=== PATIENT | female | born 1985 | race American Indian/Alaskan Native ===

== ENCOUNTER 2017-11-06 11:17 | Outpatient (CLI) | payer MEDICAID ==
[2017-11-06 11:44] VITALS: BP 125/62
[2017-11-06] MEDS ORDERED: LACTATED RINGERS 500 ML IV ONE (12:21)
[2017-11-06] MEDS ORDERED: FIORICET PO PRN (12:22)
[2017-11-06] MEDS ORDERED: XYLOCAINE 1% MPF 5 mL INFILTRATI ONE (13:30)
[2017-11-06] MEDS ORDERED: ROCEPHIN IM ONE (13:30)
--- NOTE | 2017-11-06 15:03 | Ultrasound Report ---
ULTRASOUND RENAL BILATERAL HISTORY: Urinary tract infection. TECHNIQUE: transabdominal ultrasound with color Doppler interrogation. FINDINGS: Scans of the kidneys show normal renal contours. There is normal central calyceal clustering and good preservation of the cortical thickness. There is no evidence of mass or hydronephrosis. The views of the bladder and the region of the ureters appear normal. IMPRESSION: Unremarkable renal ultrasound.
[2017-11-06] MEDS ORDERED: TYLENOL #3 PO ONE (16:15)
[2017-11-06] MEDS ORDERED: LACTATED RINGERS 1,000 ML IV SCH (18:00)
--- NOTE | 2017-11-06 18:51 | Ultrasound Report ---
FINAL REPORT EXAM: US OB > = 14 WEEKS FETUS HISTORY: MD REQUEST US OF FETUS TECHNIQUE: Ultrasound obstetrical transabdominal PRIORS: None. FINDINGS: Single live intrauterine gestation present cardiac activity is present with heart rate 137 beats per minute Cervical length 4.3 centimeters Placenta is anterior and does not appear low lying following structures are seen and appear grossly unremarkable, choroid plexus, lateral ventricles, stomach, kidneys, urinary bladder, three-vessel cord and cord insert Spine and four-chamber view of the heart not well seen due to positioning biometric measurements were obtained Biparietal diameter 23 weeks 1 day Head circumference 23 weeks 5 days Abdominal circumference 23 weeks 5 days Femur length 24 weeks 6 days Based on today's exam estimated weight 665 grams estimated gestational age today is 23 weeks 6 days with estimated date of delivery based on today's exam February 27, 2018 Amniotic fluid index is within normal limits 19.1 centimeters IMPRESSION: Single live intrauterine gestation estimated at 23 weeks 6 days
== END 2017-11-06 18:30 | disposition home or self-care (01) ==
LOC: TRG 11:17
PROVIDERS: ATTEND Obstetrics & Gynecology
DX: Z34.92 Encounter for supervision of normal pregnancy, unspecified, second trimester (principal); Z3A.23 23 weeks gestation of pregnancy
CPT/HCPCS: 59025; 76770; 76805; 96360; J0696; J7120

== ENCOUNTER 2018-02-18 16:07 | Outpatient (CLI) | payer MEDICAID ==
[2018-02-20 06:32] VITALS: BP 119/67
== END 2018-02-18 17:40 | disposition home or self-care (01) ==
LOC: TRG 16:07
PROVIDERS: ATTEND Obstetrics & Gynecology
DX: O47.03 False labor before 37 completed weeks of gestation, third trimester (principal); Z3A.38 38 weeks gestation of pregnancy
CPT/HCPCS: 59025

== ENCOUNTER 2018-02-19 09:17 | Inpatient (IN) | payer MEDICAID ==
[2018-02-19] MEDS ORDERED: PEPCID IV ONE (09:23)
[2018-02-19] MEDS ORDERED: REGLAN IV ONE (09:23)
[2018-02-19] MEDS ORDERED: BICITRA PO ONE (09:23)
[2018-02-19] MEDS ORDERED: PITOCin/NS 20 UNIT/1000ML DRIP 20 UNITS/1,000 ML BAG IV SCH ×2 (10:00→15:00)
[2018-02-19] MEDS ORDERED: ANCEF/STERILE WATER 2 GM/20 ML 2 GM/20 ML SYRINGE IV NR ×2 (10:00→14:32)
[2018-02-19] MEDS: LACTATED RINGERS 1,000 ML IV SCH ×2 (10:43→16:39)
[2018-02-19] MEDS ORDERED: NACL 0.9% 1000 ML 1,000 ML IV ONE (10:44)
--- NOTE | 2018-02-19 10:44 | Anesthesia Consultation ---
Anesthesia Consult and Med Hx Date of service: 02/19/18 - Airway Anesthetic Teeth Evaluation: Good ROM Head & Neck: Adequate Mental/Hyoid Distance: Adequate Mallampati Class: Class III Intubation Access Assessment: Possibly Difficult - Pre-Operative Health Status ASA Pre-Surgery Classification: ASA3 Proposed Anesthetic Plan: Epidural, Spinal - Pulmonary Hx Smoking: No Hx Asthma: No - Cardiovascular System Hx Hypertension: Yes (controlled ) Hx Heart Murmur: Yes (PDA repair as a child) - Central Nervous System Hx Seizures: No Hx Psychiatric Problems: No - Gastrointestinal Hx Gastroesophageal Reflux Disease: No - Endocrine Hx Renal Disease: No Hx Hypothyroidism: No Hx Hyperthyroidism: No - Hematic Hx Anemia: Yes Hx Sickle Cell Disease: Yes (TRAIT) - Other Systems Hx Alcohol Use: No Hx Substance Use: No Hx Cancer: No Hx Obesity: Yes (BMI 51.4)
--- NOTE | 2018-02-19 10:44 | Anesthesia Day of Surgery ---
Anesthesia Day of Surgery - Day of Surgery Patient Examined: Yes Patient H&P Reviewed: Yes Patient is NPO: Yes
[2018-02-19 10:48] LABS: Basophils % (Auto) 0.4 % (0.0-1.8); Eosinophils # (Auto) 0.1 K/mm3 (0.0-0.4); Eosinophils % (Auto) 0.8 % (0.0-4.3); Hematocrit 34.5 % (30.3-42.9); Hemoglobin 11.3 gm/dl (10.1-14.3); Lymphocytes # (Auto) 3.2 K/mm3 (1.2-5.4); Mean Corpuscular HGB Conc 33 % (30-34); Mean Corpuscular Hemoglobin 27 pg (28-32); Mean Corpuscular Volume 84 fl (79-97); Monocytes # (Auto) 0.8 K/mm3 (0.0-0.8); Monocytes % (Auto) 7.9 % (0.0-7.3); Platelet Count 261 K/mm3 (140-440); Red Cell Distribution Width 15.5 % (13.2-15.2)
[2018-02-19] MEDS ORDERED: NARCAN 0.4 MG/1 ML IV PRN ×2 (11:00→14:25)
[2018-02-19] MEDS ORDERED: TORADOL IV PRN (11:00)
[2018-02-19] MEDS ORDERED: SODIUM CHLORIDE FLUSH SYRINGE 10 ML IV PRN (11:00)
[2018-02-19] MEDS ORDERED: PHENERGAN PO PRN (11:00)
[2018-02-19] MEDS ORDERED: PHENERGAN PR PRN (11:00)
[2018-02-19 11:03] LABS: Alanine Aminotransferase 15 units/L (7-56); Uric Acid 6.5 mg/dL (3.5-7.6)
--- NOTE | 2018-02-19 11:29 | History and Physical Report ---
History of Present Illness Date of examination: 02/19/18 Date of admission: 02/19/18 09:17 Chief complaint: scheudled repeat csearean History of present illness: This fer 32 yo at 38+1 weeks here for scheduled repeat csearean. She is a patient of [facility] and has been seen since 11 week. 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 she alos has sickle cell trait and vit D and B12 deficiency. She had a low lying placenta that resolved and hx of UTI treated. She has been managed in this by MFM. Past History Past Surgical History: cholecystectomy, section, other (lap band, pda repair, ) [employer] History: herpes Family/Genetic History: diabetes, heart disease, hypertension, cancer, other ( seizure, and hypercholesterolemia ) Social history: . denies: smoking, alcohol abuse, prescription drug abuse - Obstetrical History Expected Date of Delivery: 02/12/18 Actual Gestation: 41 Week(s) 0 Day(s) : 5 Para: 3 Hx # Term Pregnancies: 3 Number of Pregnancies: 0 Spontaneous Abortions: 1 Induced : 0 Number of Living Children: 3 Medications and Allergies Allergies Allergy/AdvReac Type Severity Reaction Status Date / Time aspirin Allergy Intermediate Hives Verified 02/19/18 10:00 nitrofurantoin Allergy Mild Nausea Verified 02/19/18 10:43 [From Macrobid] ibuprofen [From Advil] Allergy Hives Verified 07/21/14 23:56 Home Medications Medication Instructions Recorded Confirmed Last Taken Type metFORMIN [Glucophage] 500 mg PO DAILY 07/21/14 07/21/14 07/20/14 History Hyoscyamine Subl [Levsin Sl] 0.125 mg SL Q4HR PRN #10 tablet 07/22/14 Unknown Rx Ondansetron [Zofran] 4 mg PO Q6HR PRN #14 tablet 07/22/14 Unknown Rx Acetaminophen/Codeine [Tylenol 1 tab PO Q6H PRN #10 tab 11/06/17 Unknown Rx /Codeine # 3 tab] Cephalexin [Keflex] 500 mg PO Q12HR #14 cap 11/06/17 Unknown Rx Fluconazole [Diflucan] 150 mg PO ONCE #1 tablet 11/06/17 Unknown Rx Active Meds: Active Medications Diphenhydramine HCl (Benadryl) 12.5 mg IV Q2H PRN PRN Reason: Itching Hydromorphone HCl (Dilaudid) 0.5 mg IV Q4H PRN PRN Reason: breakthrough pain > 7/10 Cefazolin Sodium (Ancef/Sterile Water 2 Gm/20 Ml) 2 gm in 20 mls @ 80 mls/hr IV PREOP NR; Protocol Stop: 02/19/18 23:59 Lactated Ringer's (Lactated Ringers) 1,000 mls @ 2,250 mls/hr IV PREOP RENETTA Stop: 02/20/18 10:27 Last Admin: 02/19/18 10:43 Dose: 2,250 mls/hr Oxytocin/Sodium Chloride (Pitocin/Ns 20 Unit/1000ml Drip) 20 units in 1,000 mls @ 0 mls/hr IV TITR RENETTA Sodium Chloride (Nacl 0.9% 1000 Ml) 1,000 mls @ 999 mls/hr IV BOLUS ONE Stop: 02/19/18 11:44 Ketorolac Tromethamine (Toradol) 30 mg IV Q6H PRN PRN Reason: Pain, Moderate (4-6) Stop: 02/24/18 10:59 Naloxone HCl (Narcan 0.4 Mg/1 Ml) 0.2 mg IV Q2MIN PRN PRN Reason: Res Rate </= 8 or 02 SAT < 92% Ondansetron HCl (Zofran) 4 mg IV Q8H PRN PRN Reason: Nausea And Vomiting Promethazine HCl (Phenergan) 25 mg PO Q6H PRN PRN Reason: Nausea And Vomiting Promethazine HCl (Phenergan) 25 mg LA Q6H PRN PRN Reason: Nausea And Vomiting Sodium Chloride (Sodium Chloride Flush Syringe 10 Ml) 10 ml IV PRN PRN PRN Reason: flush Review of Systems All systems: negative - Vital Signs Vital signs: Vital Signs Pulse Pulse Ox 89 97 02/18/18 17:33 02/18/18 17:33 Temp Pulse Resp BP Pulse Ox 97.3 F L 74 20 127/74 99 02/19/18 10:00 02/19/18 10:00 02/19/18 10:00 02/19/18 10:00 02/19/18 10:00 - Physical Exam Breasts: Positive: normal Cardiovascular: Regular rate, Normal S1 Lungs: Positive: Clear to auscultation, Normal air movement Abdomen: Positive: normal appearance, soft, normal bowel sounds. Negative: distention, tenderness, guarding Genitourinary (Female): Positive: normal external genitalia, normal perenium Vulva: both: normal Vagina: Positive: normal moisture Cervix: Negative: lesion Uterus: Positive: normal size Adnexa: both: normal Anus/Rectum: Positive: normal perianal skin Extremities: Positive: normal Deep Tendon Reflex Grade: Normal +2 - Obstetrical FHR: category 1 Cervical Dilatation: 0 Uterine Contraction Pattern: Absent Uterine Tone Measurement Phase: Resting Results Result Diagrams: 02/19/18 10:15 02/19/18 10:15 Abnormal lab results 02/19/18 02/19/18 Range/Units 10:15 10:15 MCH 27 L (28-32) pg RDW 15.5 H (13.2-15.2) % Ralls % (Auto) 7.9 H (0.0-7.3) % Creatinine 0.5 L (0.7-1.2) mg/dL Lactate Dehydrogenase 185 H (91-180) units/L All other labs normal. Assessment and Plan A/P IUP 38+1 weeks morbid obesity, HTN, DM consents signed reviewed risk of surgery which include bleeding infection damage to pelvic and non pelvic organs, risk of bleood transfusion, , risk of hysterectomy , risk of . patient understands risk and will proceed. all questions answered
[2018-02-19] MEDS ORDERED: NACL 0.9% 500 ML 500 ML IV ONE (11:52)
[2018-02-19] MEDS ORDERED: WATER FOR IRRIG STERILE IR ONE (12:20)
[2018-02-19] MEDS ORDERED: NACL 0.9% IR ONE ×5 (12:20→13:30)
[2018-02-19] MEDS ORDERED: ANCEF/STERILE WATER 2 GM/20 ML IV ONE (12:20)
[2018-02-19] MEDS ORDERED: NACL 0.9% 1000 ML 2,000 ML ONE (12:31)
[2018-02-19 12:40] LABS: Bilirubin,Urine NEG (Negative); Blood,Urine NEG (Negative); Color,Urine Yellow (Yellow); Protein,Urine <15 mg/dL mg/dL (Negative); Urobilinogen,Urine < 2.0 mg/dL (<2.0); WBC,Urine < 1.0 /HPF (0.0-6.0)
[2018-02-19] MEDS ORDERED: NEO SYNEPHRINE/NS Syringe(OR USE) IV ONE ×2 (12:41→13:57)
[2018-02-19] MEDS ORDERED: CYTOTEC ONE (13:03)
[2018-02-19] MEDS ORDERED: ePHEDrine SULFATE ONE (13:21)
[2018-02-19] MEDS ORDERED: NACL 0.9% 500 ML 500 ML IV NR (13:22)
[2018-02-19] MEDS ORDERED: ASTRAMORPH PF 10MG/10ML ONE (13:53)
[2018-02-19] MEDS ORDERED: NACL 0.9% 1000 ML 1,000 ML ONE (13:57)
[2018-02-19] MEDS ORDERED: TYLENOL PO PRN (14:25)
[2018-02-19] MEDS ORDERED: LANSINOH TP PRN (14:25)
[2018-02-19] MEDS ORDERED: SENOKOT PO PRN (14:25)
[2018-02-19] MEDS ORDERED: NORCO 5/325 PO PRN (14:25)
[2018-02-19] MEDS ORDERED: MORPHINE IV PRN (14:25)
[2018-02-19] MEDS ORDERED: TUCKS PAD TP PRN (14:25)
[2018-02-19] MEDS ORDERED: MILK OF MAGNESIA PO PRN (14:25)
[2018-02-19] MEDS ORDERED: CYTOTEC PR ONE (14:30)
--- NOTE | 2018-02-19 14:37 | Procedure Note ---
OB Delivery Note - Delivery Date of Delivery: 02/19/18 Surgeon: KERWIN SAAVEDRA Estimated blood loss: other (1999) - Section Preop diagnosis: repeat Postop diagnosis: same section procedure: repeat low transverse, other (salpingectomy via ligasure ) Disposition: PACU Complications: transfusion, intra-op hemorrhage Narrative: see op note - Infant A at 1 minute: 8 at 5 minutes: 9 Infant Gender: Male
--- NOTE | 2018-02-19 14:53 | Operative Report ---
Operative Report Operative Report: DATE OF OPERATION: 02/19/2018 PREOPERATIVE DIAGNOSES: 1. Intrauterine gestation at 38 +1 weeks 2.Uncontrolled pregestational diabetes 3. Morbid obesity 4. Desires repeat 5. Undesired fertility 6. MFM recommneded delivery POSTOPERATIVE DIAGNOSES: 1-6 lance 6. hemorrhage OPERATION PERFORMED: Repeat LSTCS Salpingectomy bilateral ( ligasure) SURGEON:Priti Ramírez ANESTHESIA: Epidural. COMPLICATIONS: hemorrhage ESTIMATED BLOOD LOSS: 2000 mL. DRAINS: Lopez catheter to the bladder. SPECIMENS TO PATHOLOGY: Cord blood for routine testing. OPERATIVE FINDINGS: A viable male with Apgars of 8 and 9 and birthweight of 6 pounds 14 ounces was delivered from a cephalic presentation. There was abnormal anterior fundal placenta. The amniotic fluid was clear. The fallopian tubes and ovaries were normal. The uterus showed window anteriorly and very thin anterior myometrium on the left. DESCRIPTION OF OPERATION: The patient was brought to the operating suite in stable condition with epidural anesthesia on board and an indwelling catheter in place in the bladder. The patient was placed supine on the operating room table and rolled to her left side with a wedge. The abdomen was prepped and draped in standard fashion for section. After testing with forceps to assure an adequate anesthetic level, the surgery was commenced. We had counseled the patient extensively regarding the risks of the surgery including but not limited to stroke, embolus, phlebitis, pain, infection, hemorrhage, as well as injury to the and the internal organs such as the bowel, bladder, blood vessels, nerves, kidneys, ureters and pelvic organs. The patient was aware of the postoperative morbidity issues and recovery timeframes. The patient was aware she can form adhesions, which can result in obstruction of loop of bowel or ureter or chronic pain. She was aware that should she may have hemorrhage and require blood transfusion, there was a small chance for exposure to hepatitis or HIV disease. In prepartation ot this case cell saver and cross matched 2 units. With the scalpel, a Pfannenstiel skin incision was made. Dissection was carried down sharply through the subcutaneous tissues and fascia in a transverse plane with the scalpel, electrocautery and curved Kovacs scissors. The fascia was sharply freed up superiorly and inferiorly from the underlying rectus muscles, which were bluntly and sharply divided. The peritoneum was entered carefully in a clear space with a curved hemostat. The peritoneal incision was then extended vertically with Metzenbaum scissors. A retractor and bladder blade were placed. A bladder flap was created by incising transversely through the peritoneum and vesicouterine fold and then bluntly dissecting the bladder distally. With the scalpel, a low transverse hysterotomy was commenced. A window was visualized. The serosa and myometrium were scored with the scalpel. The uterine cavity was actually entered bluntly with a curved hemostat. The uterine incision was then extended laterally with the dielectric press operator's fingers. An intrauterine hand was placed and the head of the was brought up out of the pelvis into the uterine incision. With fundal pressure, he was delivered without difficulty. The nasopharynx and oropharynx were suctioned. The cord was doubly clamped and transected. The infant was then handed off to the nursery personnel. Apgars were good at 8 and 9. A cord pH was obtained, which subsequently revealed a normal value. Further cord blood was collected for routine testing. Intravenous Pitocin and antibiotics were administered. The placenta was manually removed. It was very difficult to removed placenta. I was able to make a plane and removed placenta tightly attached to very thin myometium. It was sent to lab in pieces. The uterine cavity was then curetted with a dry sponge and freed of the remaining membranes. The edges of the uterine incision were grasped with Lim clamps. With the massage and the Pitocin, the uterus began to firm up normally. The uterine incision was then closed in several layers of 0 Vicryl sutures. The hysterotomy closed with vertical running stitch of 2-0 vicryl. the edges reapproximated at the lower uterine segment in normal fashion. The first suture was placed to the endometrium and myometrium. The second suture was placed through the endopelvic fascia and also reincorporated the bladder flap peritoneum. Peritoneal lavage was then performed. The pelvis and gutters were irrigated and suctioned and cleared of all blood and clots and amniotic fluid. The uterine incision was reinspected to assure hemostasis. The uterus, tubes and ovaries were inspected and were normal. Once we were satisfied with the hemostasis, attention was turned to right tube in which I grasped the fibriated end and used ligasure to remove tube. The same procedure for the left tube. Both tubes sent to lab. Closure of the abdominal incision was then addressed after hemostasis noted and surgiclell placed and intraseed. . The fascia closed with PDS 0. The subcutaneous tissue was closed with 3-0 plain sutures in 3 layers . The skin was closed with starr. . The patient was moved to the recovery room in stable condition with the Lopez catheter draining clear urine. Instruments, sponge and needle counts were reported as correct. Estimated blood loss was 2000 mL. Complications noted to be hemorrhage.
[2018-02-19] MEDS ORDERED: SODIUM CHLORIDE FLUSH SYRINGE 10 ML IV NR (15:00)
[2018-02-19] MEDS ORDERED: DEMEROL IV PRN (15:51)
[2018-02-19 16:27] LABS: Hematocrit 37.7 % (30.3-42.9); Hemoglobin 11.7 gm/dl (10.1-14.3)
[2018-02-19 16:34] LABS: INR 0.98 (0.87-1.13); Partial Thromboplastin Time 26.3 Sec. (24.2-36.6)
[2018-02-19] MEDS: DILAUDID IV PRN (16:39)
[2018-02-19] MEDS ORDERED: ANCEF/NS 1 GM/50 ML 1 GM/50 ML BAG IV SCH (17:00)
[2018-02-19] MEDS ORDERED: ceFAZolin 1 GM in NACL 0.9% 20 ML IV SCH (17:00)
[2018-02-19] MEDS: ZOFRAN IV PRN (18:27)
[2018-02-19 18:36] LABS: Hematocrit 35.2 % (30.3-42.9); Hemoglobin 11.4 gm/dl (10.1-14.3)
[2018-02-19] MEDS ORDERED: D50W (25GM) Syringe IV PRN (19:19)
[2018-02-19] MEDS ORDERED: NACL 0.9% 500 ML IV ONE (20:39)
[2018-02-19] MEDS: NACL 0.9% 1000 ML 1,000 ML IV SCH (21:15)
[2018-02-19] MEDS: HumuLIN R SUB-Q SCH ×2 (21:46→21:50)
--- NOTE | 2018-02-19 21:55 | Consultation ---
History of Present Illness - Reason for Consult Consult date: 02/19/18 tachycardia - History of Present Illness 32 woman with a history of obesity, diabetes is being consulted for evaluation of tachycardia. Patient is status post , loss of blood during surgery and was transfused packed red blood cells. Heart rate has been in the 150s. Currently she complains that she feels hot, has a cold rag on her forehead. MAXIMUM TEMPERATURE during OR was 100. Patient stated that after her first section she was tachycardic Review of systems Constitutional: no weight loss, chills Ears, eyes, nose, mouth and throat: no nasal congestion, no nasal discharge, no sinus pressure, no vision change, no red eye. Neck: No neck pain or rigidity. Cardiovascular: no chest pain, palpitations Respiratory: No cough, shortness of breath Gastrointestinal: no abdominal pain, hematochezia Genitourinary : no dysuria, frequency , no hematuria Musculoskeletal: no joint swelling or muscle ache Integumentary: no rash, no pruritis Neurological: no parathesias, no numbness, no focal weakness Endocrine: no cold or heat intolerance, no polyuria or polydipsia Hematologic/Lymphatic: no easy bruising, no easy bleeding, no gland swelling Allergic/Immunologic: no urticaria, no angioedem PAST MEDICAL HISTORY: Diabetes, obesity PAST SURGICAL HISTORY: 2, LAP-BAND SOCIAL HISTORY: Denies alcohol, tobacco, drugs FAMILY HISTORY: Hypertension Past History Social history: . denies: smoking, alcohol abuse, prescription drug abuse Medications and Allergies Allergies Allergy/AdvReac Type Severity Reaction Status Date / Time aspirin Allergy Intermediate Hives Verified 02/19/18 10:00 nitrofurantoin Allergy Mild Nausea Verified 02/19/18 10:43 [From Macrobid] ibuprofen [From Advil] Allergy Hives Verified 07/21/14 23:56 Home Medications Medication Instructions Recorded Confirmed Last Taken Type metFORMIN [Glucophage] 500 mg PO DAILY 07/21/14 02/19/18 07/20/14 History Hyoscyamine Subl [Levsin Sl] 0.125 mg SL Q4HR PRN #10 tablet 07/22/14 02/19/18 Unknown Rx Ondansetron [Zofran] 4 mg PO Q6HR PRN #14 tablet 07/22/14 02/19/18 Unknown Rx Acetaminophen/Codeine [Tylenol 1 tab PO Q6H PRN #10 tab 11/06/17 02/19/18 Unknown Rx /Codeine # 3 tab] Cephalexin [Keflex] 500 mg PO Q12HR #14 cap 11/06/17 02/19/18 Unknown Rx Fluconazole [Diflucan] 150 mg PO ONCE #1 tablet 11/06/17 02/19/18 Unknown Rx Insulin Regular, Human [Novolin R] 30 units SQ BID 02/19/18 02/19/18 02/18/18 22 :30 History Active Meds: Active Medications Acetaminophen (Tylenol) 650 mg PO Q4H PRN PRN Reason: Fever >100.5/MAST Acetaminophen/Hydrocodone Bitart ([place] 5/325) 1 each PO Q6H PRN PRN Reason: Pain, Moderate (4-6) Dextrose (D50w (25gm) Syringe) 50 ml IV PRN PRN PRN Reason: Hypoglycemia Diphenhydramine HCl (Benadryl) 12.5 mg IV Q2H PRN PRN Reason: Itching Diphtheria/Tetanus/Acell Pertussis (Boostrix) 0.5 ml IM .ONCE ONE Stop: 02/20/18 06:01 Ferrous Sulfate (Feosol) 325 mg PO QDAY RENETTA Hydromorphone HCl (Dilaudid) 0.5 mg IV Q4H PRN PRN Reason: breakthrough pain > 7/10 Last Admin: 02/19/18 16:39 Dose: 0.5 mg Cefazolin Sodium (Ancef/Sterile Water 2 Gm/20 Ml) 2 gm in 20 mls @ 80 mls/hr IV PREOP NR; Protocol Stop: 02/19/18 23:59 Lactated Ringer's (Lactated Ringers) 1,000 mls @ 2,250 mls/hr IV PREOP RENETTA Stop: 02/20/18 10:27 Last Admin: 02/19/18 16:39 Dose: 2,250 mls/hr Oxytocin/Sodium Chloride (Pitocin/Ns 20 Unit/1000ml Drip) 20 units in 1,000 mls @ 0 mls/hr IV TITR RENETTA Last Infusion: 02/19/18 16:40 Dose: Infused Sodium Chloride (Nacl 0.9% 500 Ml) 500 mls @ 0 mls/hr IV ONCE NR Stop: 02/19/18 23:59 Oxytocin/Sodium Chloride (Pitocin/Ns 20 Unit/1000ml Drip) 20 units in 1,000 mls @ 250 mls/hr IV DIRECT RENETTA Last Infusion: 02/19/18 14:15 Dose: Infused Sodium Chloride (Nacl 0.9% 1000 Ml) 1,000 mls @ 125 mls/hr IV DIRECT RENETTA Last Admin: 02/19/18 21:15 Dose: 125 mls/hr Vancomycin HCl (Vancomycin/Ns 1 Gm/250 Ml) 1 gm in 250 mls @ 167.007 mls/hr IV ONCE RENETTA; Protocol Piperacillin Sod/Tazobactam Sod (Zosyn/Ns 4.5gm/100ml) 4.5 gm in 100 mls @ 200 mls/hr IV Q8HR RENETTA; Protocol Insulin Human Regular (Humulin R) 0 units SUB-Q Q6HR RENETTA; Protocol Last Admin: 02/19/18 21:50 Dose: 3 units Ketorolac Tromethamine (Toradol) 30 mg IV Q6H PRN PRN Reason: Pain, Moderate (4-6) Stop: 02/24/18 10:59 Magnesium Hydroxide (Milk Of Magnesia) 30 ml PO QHS PRN PRN Reason: Constip Unrelieved By Senna Measles/Mumps/Rubella Vaccine Live (M-M-R Ii Vaccine) 0.5 ml SUB-Q .ONCE ONE Stop: 02/20/18 06:01 Meperidine HCl (Demerol) 25 mg IV ONCE PRN PRN Reason: Shivering Last Admin: 02/19/18 16:10 Dose: 25 mg Morphine Sulfate (Morphine) 2 mg IV Q4H PRN PRN Reason: Pain, Moderate (4-6) Multi-Ingredient Ointment (Lansinoh) 1 applic TP PRN PRN PRN Reason: dryness/cracking Multivitamins/Iron/Calcium ( Vitamin) 1 each PO QDAY RENETTA Naloxone HCl (Narcan 0.4 Mg/1 Ml) 0.2 mg IV Q2MIN PRN PRN Reason: Res Rate </= 8 or 02 SAT < 92% Naloxone HCl (Narcan 0.4 Mg/1 Ml) 0.1 mg IV Q2MIN PRN PRN Reason: Res Rate </= 8 or 02 SAT < 92% Ondansetron HCl (Zofran) 4 mg IV Q8H PRN PRN Reason: Nausea And Vomiting Last Admin: 02/19/18 18:27 Dose: 4 mg Oxycodone/Acetaminophen (Percocet 5/325) 2 tab PO Q6H PRN PRN Reason: Pain, Moderate (4-6) Promethazine HCl (Phenergan) 25 mg PO Q6H PRN PRN Reason: Nausea And Vomiting Promethazine HCl (Phenergan) 25 mg VA Q6H PRN PRN Reason: Nausea And Vomiting Senna (Senokot) 17.2 mg PO QHS PRN PRN Reason: Constipation Simethicone (Mylicon) 80 mg PO Q6H PRN PRN Reason: Gas pain Sodium Chloride (Sodium Chloride Flush Syringe 10 Ml) 10 ml IV PRN PRN PRN Reason: flush Sodium Chloride (Sodium Chloride Flush Syringe 10 Ml) 10 ml IV PRN NR Stop: 02/20/18 14:59 Vancomycin HCl (Vancomycin Pharmacy To Dose) 1 each IV PKCONSULT RENETTA Witch Rozina/Glycerin (Tucks Pad) 1 each TP PRN PRN PRN Reason: Hemorrhoids/cleansing/soothing Exam - Physical Exam Narrative exam: Gen. appearance: Patient lying in bed, no apparent distress HEENT: Normocephalic, atraumatic, pupils equally round and reactive to light, extraocular movement intact, and no sclericterus,. No JVD or thyromegaly or nodule,neck supple, no carotid bruit ,mucous membranes moist, no exudate or erythema Heart: S1, S2, regular rate and rhythm Lungs: Clear to auscultation bilaterally, breathing comfortable Abdomen: Positive bowel sounds, nontender, nondistended, no organomegaly Extremity: No edema, cyanosis, clubbing Skin: No rash, nodules, warm, dry Neuro: Oriented 3, cranial nerves II-12 intact, speech is fluent, motor and sensory intact - Constitutional Vitals: Temp Pulse Resp BP Pulse Ox 98.9 F 136 H 29 H 116/72 97 02/19/18 16:58 02/19/18 21:57 02/19/18 16:40 02/19/18 21:57 02/19/18 21:57 Results - Labs CBC & Chem 7: 02/19/18 22:51 02/19/18 22:51 Labs: Abnormal lab results 02/19/18 02/19/18 02/19/18 Range/Units 10:15 10:15 10:15 MCH 27 L (28-32) pg RDW 15.5 H (13.2-15.2) % Patrick % (Auto) 7.9 H (0.0-7.3) % Creatinine 0.5 L (0.7-1.2) mg/dL Glucose (65-100) mg/dL POC Glucose (70-105) Lactate Dehydrogenase 185 H (91-180) units/L TSH (0.270-4.200) mlU/mL Crossmatch See Detail 02/19/18 02/19/18 02/19/18 Range/Units 18:18 18:18 21:04 MCH (28-32) pg RDW (13.2-15.2) % Patrick % (Auto) (0.0-7.3) % Creatinine (0.7-1.2) mg/dL Glucose 188 H (65-100) mg/dL POC Glucose 188 H (70-105) Lactate Dehydrogenase (91-180) units/L TSH 4.600 H (0.270-4.200) mlU/mL Crossmatch Assessment and Plan Assessment Tachycardia secondary to Sepsis Plan Broaden IV antibiotic with IV Zosyn, vancomycin Obtain blood cultures, chest x-ray, UA Continue IV fluids, will follow along
[2018-02-19] MEDS ORDERED: VANCOMYCIN/NS 1 GM/250 ML 1 GM/250 ML BAG IV SCH (22:00)
[2018-02-19] MEDS ORDERED: VANCOMYCIN PHARMACY TO DOSE IV SCH (22:00)
[2018-02-19] MEDS: ZOSYN/NS 4.5GM/100ML 4.5 GM/100 ML VIAL IV SCH (23:00)
[2018-02-19 23:08] LABS: Hematocrit 31.9 % (30.3-42.9); Hemoglobin 10.4 gm/dl (10.1-14.3); Mean Corpuscular HGB Conc 33 % (30-34); Mean Corpuscular Hemoglobin 28 pg (28-32); Mean Corpuscular Volume 86 fl (79-97); Platelet Count 232 K/mm3 (140-440); Red Blood Count 3.73 M/mm3 (3.65-5.03); Red Cell Distribution Width 15.1 % (13.2-15.2)
[2018-02-19 23:26] LABS: BUN/Creatinine Ratio 14; Blood Urea Nitrogen 10 mg/dL (7-17); Calcium 7.2 mg/dL (8.4-10.2); Hemolysis Index 30
--- NOTE | 2018-02-19 23:36 | XRay Report ---
FINAL REPORT PROCEDURE: XR CHEST 1V AP TECHNIQUE: Chest radiograph anteroposterior view. CPT 98227 HISTORY: hi hr COMPARISON: No prior studies are available for comparison. FINDINGS: Heart: Normal. Mediastinum/Vessels: Normal. Lungs/Pleural space: Normal. Bony thorax: No acute osseous abnormality. Life support devices: None. IMPRESSION: No acute cardiopulmonary abnormality.
[2018-02-20] MEDS ORDERED: VANCOMYCIN 1,750 MG in NACL 0.9% 500 ML 500 ML IV ONE
[2018-02-20 00:16] LABS: Band Neutrophils # (Manual) 0.4 K/mm3; Basophils % (Manual) 0 % (0.0-1.8); Eosinophils % (Manual) 0 % (0.0-4.3); Monocytes % (Manual) 3.5 % (0.0-7.3); Total Cells Counted 200
[2018-02-20 00:26] LABS: Anisocytosis 1+; Hypochromasia 1+; Ovalocytes Few
[2018-02-20 00:27] LABS: Burr Cells Few
[2018-02-20] MEDS: DILAUDID IV PRN (05:20)
[2018-02-20] MEDS: ZOFRAN IV PRN (05:28)
[2018-02-20 05:33] LABS: Hematocrit 28.4 % (30.3-42.9); Hemoglobin 9.4 gm/dl (10.1-14.3)
[2018-02-20] MEDS: ZOSYN/NS 4.5GM/100ML 4.5 GM/100 ML VIAL IV SCH ×2 (05:34→22:14)
[2018-02-20] MEDS: NACL 0.9% 1000 ML 1,000 ML IV SCH ×3 (05:42→20:53)
[2018-02-20] MEDS: HumuLIN R SUB-Q SCH ×3 (05:58→17:11)
[2018-02-20] MEDS ORDERED: M-M-R II VACCINE SUB-Q ONE (06:00)
[2018-02-20] MEDS ORDERED: BOOSTRIX IM ONE (06:00)
[2018-02-20] MEDS ORDERED: TUCKS PAD TP PRN (07:21)
[2018-02-20] MEDS ORDERED: LANSINOH TP PRN (07:21)
[2018-02-20] MEDS ORDERED: NARCAN 0.4 MG/1 ML IV PRN (07:21)
[2018-02-20] MEDS ORDERED: PITOCin/NS 20 UNIT/1000ML DRIP 20 UNITS/1,000 ML BAG IV SCH (08:00)
[2018-02-20] MEDS ORDERED: SODIUM CHLORIDE FLUSH SYRINGE 10 ML IV NR (08:00)
[2018-02-20] MEDS: VANCOMYCIN 1,250 MG in NACL 0.9% 250ML 250 ML IV SCH ×2 (08:26→15:45)
[2018-02-20] MEDS: CLARITIN PO SCH (09:53)
[2018-02-20 11:18] LABS: BUN/Creatinine Ratio 17; Blood Urea Nitrogen 10 mg/dL (7-17); Calcium 7.5 mg/dL (8.4-10.2); Hemolysis Index 7
[2018-02-20] MEDS: PERCOCET 5/325 PO PRN ×2 (11:40→20:09)
[2018-02-20] MEDS: BENADRYL IV PRN ×2 (14:40→20:10)
--- NOTE | 2018-02-20 16:23 | Progress Note ---
Assessment and Plan A/P POD#1 repeat csec and BTL tachy resolving on abx will follow recommnedations from medicine continue routine orders Subjective - Subjective Date of service: 02/20/18 Principal diagnosis: s/p repeat csec btl tachy Interval history: This fer 32 yo at 38+1 weeks here for scheduled repeat csearean. She is a patient of [facility] and has been seen since 11 week. 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 she alos has sickle cell trait and vit D and B12 deficiency. She had a low lying placenta that resolved and hx of UTI treated. She has been managed in this by MFM. Patient reports: appetite normal, voiding normally, pain well controlled [place]: doing well Objective - Vital Signs Latest vital signs: Vital Signs Temp Pulse Resp BP BP BP Pulse Ox 02/20/18 12:00 98.8 F 112 H 22 114/72 02/20/18 11:40 16 02/20/18 05:20 117 H 22 98 02/20/18 04:21 98.9 F 116 H 22 112/63 96 02/20/18 00:22 104 H 118/66 97 02/20/18 00:20 97.7 F 104 H 20 118/66 97 02/20/18 00:17 116 H 118/66 96 02/20/18 00:12 107 H 114/68 97 02/20/18 00:07 119 H 112/67 97 02/20/18 00:02 110 H 111/65 96 02/19/18 23:57 120 H 112/62 98 02/19/18 23:52 118 H 116/65 96 02/19/18 23:47 105 H 116/63 97 02/19/18 23:43 110 H 93 02/19/18 23:42 109 H 121/70 96 02/19/18 23:37 102 H 121/74 97 02/19/18 23:32 115 H 116/68 96 02/19/18 23:27 112 H 119/71 96 02/19/18 23:22 122 H 122/72 96 02/19/18 23:17 115 H 119/70 97 02/19/18 23:12 126 H 128/71 95 02/19/18 23:07 110 H 112/66 99 02/19/18 23:02 113 H 119/67 99 02/19/18 22:57 117 H 125/62 98 02/19/18 22:52 109 H 115/69 99 02/19/18 22:47 108 H 117/75 98 02/19/18 22:42 118 H 117/73 96 02/19/18 22:37 120 H 112/67 94 02/19/18 22:32 107 H 110/65 96 02/19/18 22:30 119 H 94 02/19/18 22:27 110 H 111/61 95 02/19/18 22:22 122 H 112/70 96 02/19/18 22:17 126 H 129/65 97 02/19/18 22:12 131 H 123/63 97 02/19/18 22:07 131 H 124/66 98 02/19/18 22:02 122 H 117/69 96 02/19/18 21:57 136 H 116/72 97 02/19/18 21:52 127 H 105/59 96 02/19/18 21:50 128 H 94 02/19/18 21:47 138 H 109/67 96 02/19/18 21:45 99 F 138 H 22 109/67 02/19/18 21:42 128 H 115/74 96 02/19/18 21:37 125 H 112/71 97 02/19/18 21:32 135 H 111/70 97 02/19/18 21:27 131 H 118/74 97 02/19/18 21:26 133 H 94 02/19/18 21:22 157 H 145/89 98 02/19/18 21:17 129 H 117/64 96 02/19/18 21:12 132 H 125/65 95 02/19/18 21:07 135 H 129/66 95 02/19/18 21:02 137 H 128/64 95 02/19/18 20:57 141 H 126/61 97 02/19/18 20:54 60 93 02/19/18 20:52 142 H 123/64 96 02/19/18 20:47 132 H 119/61 95 02/19/18 20:45 139 H 94 02/19/18 20:42 143 H 121/62 95 02/19/18 20:38 145 H 94 02/19/18 20:37 145 H 120/62 95 02/19/18 20:32 139 H 125/69 96 02/19/18 20:27 145 H 96 02/19/18 20:22 149 H 97 02/19/18 20:02 148 H 133/81 02/19/18 19:58 137 H 95 02/19/18 19:57 142 H 120/63 02/19/18 19:53 175 H 97 02/19/18 19:52 171 H 128/62 02/19/18 19:48 147 H 97 02/19/18 19:47 146 H 116/69 02/19/18 19:45 98.7 F 156 H 20 116/69 99 02/19/18 19:43 148 H 96 02/19/18 19:42 146 H 113/59 02/19/18 19:38 148 H 97 02/19/18 19:37 144 H 123/58 02/19/18 19:33 145 H 96 02/19/18 19:32 146 H 127/74 02/19/18 19:28 152 H 97 02/19/18 19:27 146 H 129/74 02/19/18 19:23 149 H 97 02/19/18 19:22 151 H 139/74 02/19/18 19:18 157 H 97 02/19/18 19:17 146 H 131/70 02/19/18 19:13 144 H 96 02/19/18 19:12 141 H 131/68 02/19/18 19:08 141 H 96 02/19/18 19:07 144 H 129/69 02/19/18 19:03 149 H 97 02/19/18 19:02 150 H 128/69 02/19/18 18:58 149 H 96 02/19/18 18:57 142 H 125/80 02/19/18 18:53 146 H 121/79 97 02/19/18 18:48 166 H 98 02/19/18 18:33 163 H 98 02/19/18 18:28 163 H 98 02/19/18 18:23 163 H 98 02/19/18 18:18 165 H 98 02/19/18 18:17 155 H 112/76 02/19/18 18:13 149 H 97 02/19/18 18:12 150 H 122/83 02/19/18 18:08 173 H 99 02/19/18 18:07 171 H 119/80 02/19/18 18:03 156 H 98 02/19/18 17:58 142 H 98 02/19/18 17:57 146 H 106/75 02/19/18 17:53 148 H 98 02/19/18 17:52 142 H 110/77 02/19/18 17:48 148 H 98 02/19/18 17:47 142 H 113/82 02/19/18 17:43 137 H 98 02/19/18 17:42 131 H 119/90 02/19/18 17:38 144 H 98 02/19/18 17:37 144 H 115/85 02/19/18 17:33 137 H 98 02/19/18 17:32 142 H 122/86 02/19/18 17:28 150 H 98 02/19/18 17:27 146 H 134/89 02/19/18 17:23 147 H 99 02/19/18 17:22 144 H 138/93 02/19/18 17:18 141 H 99 02/19/18 17:17 144 H 136/94 02/19/18 16:58 98.9 F 02/19/18 16:56 98.9 F 02/19/18 16:40 128 H 29 H 146/94 99 02/19/18 16:35 141 H 28 H 147/90 99 02/19/18 16:30 133 H 27 H 152/90 99 02/19/18 16:24 137 H 31 H 141/89 99 Intake and Output 02/20/18 02/20/18 02/20/18 07:59 15:59 23:59 Intake Total 1120 717.917 Output Total 450 300 Balance 670 417.917 Intake: IV 1000 597.917 NaCl 0.9% 1000 ml 1,000 1000 335.417 ml @ 125 mls/hr IV DIRECT [facility] Rx#:[id number] Vancomycin 1,250 mg In 262.5 NaCl 0.9% 250Ml 250 ml @ 166.667 mls/hr IV Q8H [facility] Rx#:[id number] Oral 120 120 Output: Urine 450 300 Indwelling Catheter 450 300 Other: Total, Intake Amount 120 120 Total, Output Amount 250 300 # Voids Void 0 - Exam Breasts: Present: normal Cardiovascular: Present: Regular rate, Normal S1 Lungs: Present: Clear to auscultation, Normal air movement Abdomen: Present: normal appearance, soft, normal bowel sounds. Absent: distention, tenderness, guarding Vulva: both: normal Uterus: Present: normal, firm, fundal height below umbilicus. Absent: bogginess , tenderness Extremities: Present: normal Deep Tendon Reflex Grade: Normal +2 Incision: Present: normal, dry - Labs Labs: Abnormal lab results 02/19/18 02/19/18 02/19/18 Range/Units 10:15 18:18 18:18 WBC (4.5-11.0) K/mm3 Hgb (10.1-14.3) gm/dl Hct (30.3-42.9) % Seg Neuts % (Manual) (40.0-70.0) % Lymphocytes % (Manual) (13.4-35.0) % Seg Neutrophils # Man (1.8-7.7) K/mm3 Chloride (98-107) mmol/L Carbon Dioxide (22-30) mmol/L Creatinine (0.7-1.2) mg/dL Glucose 188 H (65-100) mg/dL POC Glucose (70-105) Calcium (8.4-10.2) mg/dL TSH 4.600 H (0.270-4.200) mlU/mL Crossmatch See Detail 02/19/18 02/19/18 02/19/18 Range/Units 21:04 22:51 22:51 WBC 24.1 H (4.5-11.0) K/mm3 Hgb (10.1-14.3) gm/dl Hct (30.3-42.9) % Seg Neuts % (Manual) 90.0 H (40.0-70.0) % Lymphocytes % (Manual) 5.0 L (13.4-35.0) % Seg Neutrophils # Man 21.7 H (1.8-7.7) K/mm3 Chloride 107.2 H (98-107) mmol/L Carbon Dioxide 14 L (22-30) mmol/L Creatinine (0.7-1.2) mg/dL Glucose 199 H (65-100) mg/dL POC Glucose 188 H (70-105) Calcium 7.2 L (8.4-10.2) mg/dL TSH (0.270-4.200) mlU/mL Crossmatch 02/20/18 02/20/18 02/20/18 Range/Units 04:59 05:20 10:34 WBC (4.5-11.0) K/mm3 Hgb 9.4 L (10.1-14.3) gm/dl Hct 28.4 L (30.3-42.9) % Seg Neuts % (Manual) (40.0-70.0) % Lymphocytes % (Manual) (13.4-35.0) % Seg Neutrophils # Man (1.8-7.7) K/mm3 Chloride 108.9 H (98-107) mmol/L Carbon Dioxide 19 L (22-30) mmol/L Creatinine 0.6 L (0.7-1.2) mg/dL Glucose 124 H (65-100) mg/dL POC Glucose 158 H (70-105) Calcium 7.5 L (8.4-10.2) mg/dL TSH (0.270-4.200) mlU/mL Crossmatch
--- NOTE | 2018-02-20 17:06 | Progress Note ---
Assessment and Plan Assessment and plan: 32 woman with a history of obesity, diabetes is being consulted for evaluation of tachycardia. Patient is status post , loss of blood during surgery and was transfused packed red blood cells. Heart rate has been in the 150s. she complained that she feels hot, has a cold rag on her forehead. MAXIMUM TEMPERATURE during OR was 100. Patient stated that after her first section C- section she was tachycardic Sepsis Tachycardia Acute blood loss Anemia s/p Cesection POD 1 Plan Cultures have remained negative. No further evidence of infection Continue IV fluids, will follow along Will descalate anbx in am if no further fever S/P PRBC Dvt/GI prophy History Interval history: Patient seen and examined in no acute distress. Hospitalist Physical - Constitutional Vitals: Temp Pulse Resp BP Pulse Ox 98.8 F 112 H 22 114/72 98 02/20/18 12:00 02/20/18 12:00 02/20/18 12:00 02/20/18 12:00 02/20/18 05:20 General appearance: Present: no acute distress - EENT Eyes: Present: PERRL, EOM intact ENT: hearing intact, clear oral mucosa - Neck Neck: Present: supple, normal ROM - Respiratory Respiratory effort: normal Respiratory: bilateral: CTA - Cardiovascular Rhythm: regular Heart Sounds: Present: S1 & S2. Absent: systolic murmur - Extremities Extremities: no ischemia, pulses intact, pulses symmetrical, No edema, normal temperature, normal color, Full ROM Peripheral Pulses: within normal limits - Abdominal General gastrointestinal: soft, non-tender, non-distended, normal bowel sounds - Integumentary Integumentary: Present: clear, warm - Psychiatric Psychiatric: appropriate mood/affect - Neurologic Neurologic: CNII-XII intact, moves all extremities Results - Labs CBC & Chem 7: 02/20/18 20:08 02/20/18 10:34 Labs: Laboratory Last Values WBC 24.1 K/mm3 (4.5-11.0) H 02/19/18 22:51 RBC 3.73 M/mm3 (3.65-5.03) 02/19/18 22:51 Hgb 9.4 gm/dl (10.1-14.3) L 02/20/18 05:20 Hct 28.4 % (30.3-42.9) L 02/20/18 05:20 MCV 86 fl (79-97) 02/19/18 22:51 MCH 28 pg (28-32) 02/19/18 22:51 MCHC 33 % (30-34) 02/19/18 22:51 RDW 15.1 % (13.2-15.2) 02/19/18 22:51 Plt Count 232 K/mm3 (140-440) 02/19/18 22:51 Lymph % (Auto) 32.0 % (13.4-35.0) 02/19/18 10:15 [place] % (Auto) 7.9 % (0.0-7.3) H 02/19/18 10:15 Eos % (Auto) 0.8 % (0.0-4.3) 02/19/18 10:15 Baso % (Auto) 0.4 % (0.0-1.8) 02/19/18 10:15 Lymph # 3.2 K/mm3 (1.2-5.4) 02/19/18 10:15 [place] # 0.8 K/mm3 (0.0-0.8) 02/19/18 10:15 Eos # 0.1 K/mm3 (0.0-0.4) 02/19/18 10:15 Baso # 0.0 K/mm3 (0.0-0.1) 02/19/18 10:15 Add Manual Diff Complete 02/19/18 22:51 Total Counted 200 02/19/18 22:51 Seg Neutrophils % 58.9 % (40.0-70.0) 02/19/18 10:15 Seg Neuts % (Manual) 90.0 % (40.0-70.0) H 02/19/18 22:51 Band Neutrophils % 1.5 % 02/19/18 22:51 Lymphocytes % (Manual) 5.0 % (13.4-35.0) L 02/19/18 22:51 Reactive Lymphs % (Man) 0 % 02/19/18 22:51 Monocytes % (Manual) 3.5 % (0.0-7.3) 02/19/18 22:51 Eosinophils % (Manual) 0 % (0.0-4.3) 02/19/18 22:51 Basophils % (Manual) 0 % (0.0-1.8) 02/19/18 22:51 Metamyelocytes % 0 % 02/19/18 22:51 Myelocytes % 0 % 02/19/18 22:51 Promyelocytes % 0 % 02/19/18 22:51 Blast Cells % 0 % 02/19/18 22:51 Nucleated RBC % Not Reportable 02/19/18 22:51 Seg Neutrophils # 6.0 K/mm3 (1.8-7.7) 02/19/18 10:15 Seg Neutrophils # Man 21.7 K/mm3 (1.8-7.7) H 02/19/18 22:51 Band Neutrophils # 0.4 K/mm3 02/19/18 22:51 Lymphocytes # (Manual) 1.2 K/mm3 (1.2-5.4) 02/19/18 22:51 Abs React Lymphs (Man) 0.0 K/mm3 02/19/18 22:51 Monocytes # (Manual) 0.8 K/mm3 (0.0-0.8) 02/19/18 22:51 Eosinophils # (Manual) 0.0 K/mm3 (0.0-0.4) 02/19/18 22:51 Basophils # (Manual) 0.0 K/mm3 (0.0-0.1) 02/19/18 22:51 Metamyelocytes # 0.0 K/mm3 02/19/18 22:51 Myelocytes # 0.0 K/mm3 02/19/18 22:51 Promyelocytes # 0.0 K/mm3 02/19/18 22:51 Blast Cells # 0.0 K/mm3 02/19/18 22:51 WBC Morphology Not Reportable 02/19/18 22:51 Hypersegmented Neuts Not Reportable 02/19/18 22:51 Hyposegmented Neuts Not Reportable 02/19/18 22:51 Hypogranular Neuts Not Reportable 02/19/18 22:51 Smudge Cells Not Reportable 02/19/18 22:51 Toxic Granulation Not Reportable 02/19/18 22:51 Toxic Vacuolation Not Reportable 02/19/18 22:51 Dohle Bodies Not Reportable 02/19/18 22:51 Pelger-Huet Anomaly Not Reportable 02/19/18 22:51 [place] Rods Not Reportable 02/19/18 22:51 Platelet Estimate Appears normal 02/19/18 22:51 Clumped Platelets Not Reportable 02/19/18 22:51 Plt Clumps, EDTA Not Reportable 02/19/18 22:51 Large Platelets Not Reportable 02/19/18 22:51 Giant Platelets Not Reportable 02/19/18 22:51 Platelet Satelliting Not Reportable 02/19/18 22:51 Plt Morphology Comment Not Reportable 02/19/18 22:51 RBC Morphology Not Reportable 02/19/18 22:51 Dimorphic RBCs Not Reportable 02/19/18 22:51 Polychromasia Not Reportable 02/19/18 22:51 Hypochromasia 1+ 02/19/18 22:51 Poikilocytosis Not Reportable 02/19/18 22:51 Anisocytosis 1+ 02/19/18 22:51 Microcytosis Not Reportable 02/19/18 22:51 Macrocytosis Not Reportable 02/19/18 22:51 Spherocytes Not Reportable 02/19/18 22:51 Pappenheimer Bodies Not Reportable 02/19/18 22:51 Sickle Cells Not Reportable 02/19/18 22:51 Target Cells Not Reportable 02/19/18 22:51 Tear Drop Cells Not Reportable 02/19/18 22:51 Ovalocytes Few 02/19/18 22:51 Helmet Cells Not Reportable 02/19/18 22:51 [place] Bodies Not Reportable 02/19/18 22:51 [place] Rings Not Reportable 02/19/18 22:51 [place] Cells Few 02/19/18 22:51 Bite Cells Not Reportable 02/19/18 22:51 Crenated Cell Not Reportable 02/19/18 22:51 Elliptocytes Few 02/19/18 22:51 Acanthocytes (Spur) Not Reportable 02/19/18 22:51 Rouleaux Not Reportable 02/19/18 22:51 Hemoglobin C Crystals Not Reportable 02/19/18 22:51 Schistocytes Not Reportable 02/19/18 22:51 Malaria parasites Not Reportable 02/19/18 22:51 Srini Bodies Not Reportable 02/19/18 22:51 Hem Pathologist Commnt No 02/19/18 22:51 PT 13.5 Sec. (12.2-14.9) 02/19/18 16:14 INR 0.98 (0.87-1.13) 02/19/18 16:14 APTT 26.3 Sec. (24.2-36.6) 02/19/18 16:14 Sodium 139 mmol/L (137-145) 02/20/18 10:34 Potassium 4.4 mmol/L (3.6-5.0) 02/20/18 10:34 Chloride 108.9 mmol/L (98-107) H 02/20/18 10:34 Carbon Dioxide 19 mmol/L (22-30) L 02/20/18 10:34 Anion Gap 16 mmol/L 02/20/18 10:34 BUN 10 mg/dL (7-17) 02/20/18 10:34 Creatinine 0.6 mg/dL (0.7-1.2) L 02/20/18 10:34 Estimated GFR > 60 ml/min 02/20/18 10:34 BUN/Creatinine Ratio 17 % 02/20/18 10:34 Glucose 124 mg/dL (65-100) H 02/20/18 10:34 POC Glucose 157 (70-105) H 02/20/18 16:56 Uric Acid 6.5 mg/dL (3.5-7.6) 02/19/18 10:15 Calcium 7.5 mg/dL (8.4-10.2) L 02/20/18 10:34 AST 14 units/L (5-40) 02/19/18 10:15 ALT 15 units/L (7-56) 02/19/18 10:15 Lactate Dehydrogenase 185 units/L (91-180) H 02/19/18 10:15 TSH 4.600 mlU/mL (0.270-4.200) H 02/19/18 18:18 Free T4 0.86 ng/dL (0.76-1.46) 02/20/18 10:34 Urine Color Yellow (Yellow) 02/19/18 11:15 Urine Turbidity Clear (Clear) 02/19/18 11:15 Urine pH 6.0 (5.0-7.0) 02/19/18 11:15 Ur Specific [place] 1.012 (1.003-1.030) 02/19/18 11:15 Urine Protein <15 mg/dl mg/dL (Negative) 02/19/18 11:15 Urine Glucose (UA) Neg mg/dL (Negative) 02/19/18 11:15 Urine Ketones Neg mg/dL (Negative) 02/19/18 11:15 Urine Blood Neg (Negative) 02/19/18 11:15 Urine Nitrite Neg (Negative) 02/19/18 11:15 Urine Bilirubin Neg (Negative) 02/19/18 11:15 Urine Urobilinogen < 2.0 mg/dL (<2.0) 02/19/18 11:15 Ur Leukocyte Esterase Neg (Negative) 02/19/18 11:15 Urine WBC (Auto) < 1.0 /HPF (0.0-6.0) 02/19/18 11:15 Urine RBC (Auto) 1.0 /HPF (0.0-6.0) 02/19/18 11:15 U Epithel Cells (Auto) < 1.0 /HPF (0-13.0) 02/19/18 11:15 Blood Type B POSITIVE 02/19/18 10:15 Antibody Screen Negative 02/19/18 10:15 Crossmatch See Detail 02/19/18 10:15
[2018-02-20] MEDS ORDERED: BENADRYL PO PRN (18:33)
[2018-02-20 20:36] LABS: Hematocrit 26.7 % (30.3-42.9); Hemoglobin 8.2 gm/dl (10.1-14.3)
[2018-02-20] MEDS ORDERED: NACL 0.9% 500 ML 500 ML IV SCH (21:00)
[2018-02-21] MEDS: VANCOMYCIN 1,250 MG in NACL 0.9% 250ML 250 ML IV SCH (00:31)
[2018-02-21] MEDS: HumuLIN R SUB-Q SCH ×3 (00:45→18:50)
[2018-02-21] MEDS: PERCOCET 5/325 PO PRN ×4 (02:28→20:23)
[2018-02-21] MEDS: ZOSYN/NS 4.5GM/100ML 4.5 GM/100 ML VIAL IV SCH ×2 (05:51→15:26)
--- NOTE | 2018-02-21 08:04 | Progress Note ---
Assessment and Plan A/P POD#2 repeat csec and BTL tachy resolving continue on abx will follow recommendations from medicine continue routine orders Subjective - Subjective Date of service: 02/21/18 Principal diagnosis: s/p repeat csec btl tachy Interval history: This fer 32 yo at 38+1 weeks here for scheduled repeat csearean. She is a patient of [facility] and has been seen since 11 week. 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 she alos has sickle cell trait and vit D and B12 deficiency. She had a low lying placenta that resolved and hx of UTI treated. She has been managed in this by MFM. Patient reports: appetite normal, voiding normally, pain well controlled, flatus , ambulating normally [place]: doing well Objective - Vital Signs Latest vital signs: Vital Signs Temp Pulse Resp BP Pulse Ox 02/21/18 02:28 20 02/21/18 01:11 98.2 F 110 H 20 122/74 02/20/18 20:09 20 02/20/18 15:57 98.8 F 96 H 20 133/67 99 02/20/18 12:00 98.8 F 112 H 22 114/72 02/20/18 11:40 16 Intake and Output 02/20/18 02/21/18 02/21/18 23:59 07:59 15:59 Intake Total 1362.5 240 Output Total 100 1400 Balance 1262.5 -1160 Intake: IV 1362.5 NaCl 0.9% 1000 ml 1,000 1000 ml @ 125 mls/hr IV DIRECT [facility] Rx#:[id number] Vancomycin 1,250 mg In 262.5 NaCl 0.9% 250Ml 250 ml @ 166.667 mls/hr IV Q8H [facility] Rx#:[id number] ZOSYN/NS 4.5GM/100ML 4.5 100 gm In 100 ml @ 200 mls/hr IV Q8HR [facility] Rx#: [id number] Oral 240 Output: Urine 100 1400 Void 100 1400 Other: Total, Intake Amount 240 Total, Output Amount 100 600 # Voids Void 1 - Exam Breasts: Present: normal Cardiovascular: Present: Regular rate, Normal S1 Lungs: Present: Clear to auscultation, Normal air movement Abdomen: Present: normal appearance, soft, normal bowel sounds. Absent: distention, tenderness, guarding Vulva: both: normal Uterus: Present: normal, firm, fundal height below umbilicus. Absent: bogginess , tenderness Extremities: Present: normal Deep Tendon Reflex Grade: Normal +2 Incision: Present: normal, dry, intact - Labs Labs: Abnormal lab results 02/19/18 02/20/18 02/20/18 Range/Units 10:15 10:34 11:49 Hgb (10.1-14.3) gm/dl Hct (30.3-42.9) % Chloride 108.9 H (98-107) mmol/L Carbon Dioxide 19 L (22-30) mmol/L Creatinine 0.6 L (0.7-1.2) mg/dL Glucose 124 H (65-100) mg/dL POC Glucose 141 H (70-105) Calcium 7.5 L (8.4-10.2) mg/dL Crossmatch See Detail 02/20/18 02/20/18 02/21/18 Range/Units 16:56 20:08 00:24 Hgb 8.2 L (10.1-14.3) gm/dl Hct 26.7 L (30.3-42.9) % Chloride (98-107) mmol/L Carbon Dioxide (22-30) mmol/L Creatinine (0.7-1.2) mg/dL Glucose (65-100) mg/dL POC Glucose 157 H 190 H (70-105) Calcium (8.4-10.2) mg/dL Crossmatch 02/21/18 Range/Units 05:35 Hgb (10.1-14.3) gm/dl Hct (30.3-42.9) % Chloride (98-107) mmol/L Carbon Dioxide (22-30) mmol/L Creatinine (0.7-1.2) mg/dL Glucose (65-100) mg/dL POC Glucose 133 H (70-105) Calcium (8.4-10.2) mg/dL Crossmatch
[2018-02-21] MEDS: CLARITIN PO SCH (09:59)
[2018-02-21] MEDS: FEOSOL PO SCH (09:59)
[2018-02-21] MEDS: GLUCOPHAGE PO SCH ×2 (10:23→21:57)
[2018-02-21 12:12] LABS: Hematocrit 21.1 % (30.3-42.9)
[2018-02-21 17:13] LABS: Basophils % (Auto) 0.2 % (0.0-1.8); Eosinophils # (Auto) 0.1 K/mm3 (0.0-0.4); Eosinophils % (Auto) 0.6 % (0.0-4.3); Hematocrit 21.3 % (30.3-42.9); Lymphocytes # (Auto) 1.7 K/mm3 (1.2-5.4); Lymphocytes % (Auto) 10.4 % (13.4-35.0); Mean Corpuscular HGB Conc 33 % (30-34); Mean Corpuscular Hemoglobin 28 pg (28-32); Mean Corpuscular Volume 85 fl (79-97); Monocytes # (Auto) 1.1 K/mm3 (0.0-0.8); Monocytes % (Auto) 6.8 % (0.0-7.3); Platelet Count 185 K/mm3 (140-440); Red Cell Distribution Width 15.2 % (13.2-15.2)
[2018-02-21] MEDS: NACL 0.9% 1000 ML 1,000 ML IV SCH (20:18)
[2018-02-21] MEDS: MYLICON PO PRN (20:23)
--- NOTE | 2018-02-21 23:27 | Progress Note ---
Assessment and Plan Assessment and plan: 32 woman with a history of obesity, diabetes is being consulted for evaluation of tachycardia. Patient is status post , loss of blood during surgery and was transfused packed red blood cells. Heart rate has been in the 150s. she complained that she feels hot, has a cold rag on her forehead. MAXIMUM TEMPERATURE during OR was 100. Patient stated that after her first section C- section she was tachycardic Sepsis Tachycardia Acute blood loss Anemia s/p POD 2 Metabolic acidosis-Improve Plan Cultures have remained negative. No further evidence of infection Continue IV fluids, will follow along Will deescalate abx in am if no further fever S/P PRBC Dvt/GI prophy History Interval history: Patient seen and examined in no acute distress. Hospitalist Physical - Constitutional Vitals: Temp Pulse Resp BP Pulse Ox 99.2 F 119 H 20 123/76 100 02/21/18 23:17 02/21/18 23:17 02/21/18 23:17 02/21/18 23:17 02/21/18 21:47 General appearance: Present: no acute distress, well-nourished - EENT Eyes: Present: PERRL, EOM intact ENT: hearing intact, clear oral mucosa - Neck Neck: Present: supple, normal ROM - Respiratory Respiratory effort: normal Respiratory: bilateral: CTA - Cardiovascular Rhythm: regular Heart Sounds: Present: S1 & S2 (tachycardia) - Extremities Extremities: no ischemia, pulses intact, pulses symmetrical, No edema, normal temperature, normal color, Full ROM Peripheral Pulses: within normal limits - Abdominal General gastrointestinal: soft, non-tender, non-distended, normal bowel sounds - Integumentary Integumentary: Present: clear, warm, dry - Psychiatric Psychiatric: appropriate mood/affect - Neurologic Neurologic: CNII-XII intact, moves all extremities - Allied Health Allied health notes reviewed: nursing Results - Labs CBC & Chem 7: 02/22/18 05:42 02/20/18 10:34 Labs: Laboratory Last Values WBC 16.5 K/mm3 (4.5-11.0) H 02/21/18 16:55 RBC 2.50 M/mm3 (3.65-5.03) L 02/21/18 16:55 Hgb 7.0 gm/dl (10.1-14.3) L 02/21/18 16:55 Hct 21.3 % (30.3-42.9) L 02/21/18 16:55 MCV 85 fl (79-97) 02/21/18 16:55 MCH 28 pg (28-32) 02/21/18 16:55 MCHC 33 % (30-34) 02/21/18 16:55 RDW 15.2 % (13.2-15.2) 02/21/18 16:55 Plt Count 185 K/mm3 (140-440) 02/21/18 16:55 Lymph % (Auto) 10.4 % (13.4-35.0) L 02/21/18 16:55 [place] % (Auto) 6.8 % (0.0-7.3) 02/21/18 16:55 Eos % (Auto) 0.6 % (0.0-4.3) 02/21/18 16:55 Baso % (Auto) 0.2 % (0.0-1.8) 02/21/18 16:55 Lymph # 1.7 K/mm3 (1.2-5.4) 02/21/18 16:55 [place] # 1.1 K/mm3 (0.0-0.8) H 02/21/18 16:55 Eos # 0.1 K/mm3 (0.0-0.4) 02/21/18 16:55 Baso # 0.0 K/mm3 (0.0-0.1) 02/21/18 16:55 Add Manual Diff Complete 02/19/18 22:51 Total Counted 200 02/19/18 22:51 Seg Neutrophils % 82.0 % (40.0-70.0) H 02/21/18 16:55 Seg Neuts % (Manual) 90.0 % (40.0-70.0) H 02/19/18 22:51 Band Neutrophils % 1.5 % 02/19/18 22:51 Lymphocytes % (Manual) 5.0 % (13.4-35.0) L 02/19/18 22:51 Reactive Lymphs % (Man) 0 % 02/19/18 22:51 Monocytes % (Manual) 3.5 % (0.0-7.3) 02/19/18 22:51 Eosinophils % (Manual) 0 % (0.0-4.3) 02/19/18 22:51 Basophils % (Manual) 0 % (0.0-1.8) 02/19/18 22:51 Metamyelocytes % 0 % 02/19/18 22:51 Myelocytes % 0 % 02/19/18 22:51 Promyelocytes % 0 % 02/19/18 22:51 Blast Cells % 0 % 02/19/18 22:51 Nucleated RBC % Not Reportable 02/19/18 22:51 Seg Neutrophils # 13.6 K/mm3 (1.8-7.7) H 02/21/18 16:55 Seg Neutrophils # Man 21.7 K/mm3 (1.8-7.7) H 02/19/18 22:51 Band Neutrophils # 0.4 K/mm3 02/19/18 22:51 Lymphocytes # (Manual) 1.2 K/mm3 (1.2-5.4) 02/19/18 22:51 Abs React Lymphs (Man) 0.0 K/mm3 02/19/18 22:51 Monocytes # (Manual) 0.8 K/mm3 (0.0-0.8) 02/19/18 22:51 Eosinophils # (Manual) 0.0 K/mm3 (0.0-0.4) 02/19/18 22:51 Basophils # (Manual) 0.0 K/mm3 (0.0-0.1) 02/19/18 22:51 Metamyelocytes # 0.0 K/mm3 02/19/18 22:51 Myelocytes # 0.0 K/mm3 02/19/18 22:51 Promyelocytes # 0.0 K/mm3 02/19/18 22:51 Blast Cells # 0.0 K/mm3 02/19/18 22:51 WBC Morphology Not Reportable 02/19/18 22:51 Hypersegmented Neuts Not Reportable 02/19/18 22:51 Hyposegmented Neuts Not Reportable 02/19/18 22:51 Hypogranular Neuts Not Reportable 02/19/18 22:51 Smudge Cells Not Reportable 02/19/18 22:51 Toxic Granulation Not Reportable 02/19/18 22:51 Toxic Vacuolation Not Reportable 02/19/18 22:51 Dohle Bodies Not Reportable 02/19/18 22:51 Pelger-Huet Anomaly Not Reportable 02/19/18 22:51 [place] Rods Not Reportable 02/19/18 22:51 Platelet Estimate Appears normal 02/19/18 22:51 Clumped Platelets Not Reportable 02/19/18 22:51 Plt Clumps, EDTA Not Reportable 02/19/18 22:51 Large Platelets Not Reportable 02/19/18 22:51 Giant Platelets Not Reportable 02/19/18 22:51 Platelet Satelliting Not Reportable 02/19/18 22:51 Plt Morphology Comment Not Reportable 02/19/18 22:51 RBC Morphology Not Reportable 02/19/18 22:51 Dimorphic RBCs Not Reportable 02/19/18 22:51 Polychromasia Not Reportable 02/19/18 22:51 Hypochromasia 1+ 02/19/18 22:51 Poikilocytosis Not Reportable 02/19/18 22:51 Anisocytosis 1+ 02/19/18 22:51 Microcytosis Not Reportable 02/19/18 22:51 Macrocytosis Not Reportable 02/19/18 22:51 Spherocytes Not Reportable 02/19/18 22:51 Pappenheimer Bodies Not Reportable 02/19/18 22:51 Sickle Cells Not Reportable 02/19/18 22:51 Target Cells Not Reportable 02/19/18 22:51 Tear Drop Cells Not Reportable 02/19/18 22:51 Ovalocytes Few 02/19/18 22:51 Helmet Cells Not Reportable 02/19/18 22:51 [place] Bodies Not Reportable 02/19/18 22:51 [place] Rings Not Reportable 02/19/18 22:51 Teo Cells Few 02/19/18 22:51 Bite Cells Not Reportable 02/19/18 22:51 Crenated Cell Not Reportable 02/19/18 22:51 Elliptocytes Few 02/19/18 22:51 Acanthocytes (Spur) Not Reportable 02/19/18 22:51 Rouleaux Not Reportable 02/19/18 22:51 Hemoglobin C Crystals Not Reportable 02/19/18 22:51 Schistocytes Not Reportable 02/19/18 22:51 Malaria parasites Not Reportable 02/19/18 22:51 Srini Bodies Not Reportable 02/19/18 22:51 Hem Pathologist Commnt No 02/19/18 22:51 PT 13.5 Sec. (12.2-14.9) 02/19/18 16:14 INR 0.98 (0.87-1.13) 02/19/18 16:14 APTT 26.3 Sec. (24.2-36.6) 02/19/18 16:14 Sodium 139 mmol/L (137-145) 02/20/18 10:34 Potassium 4.4 mmol/L (3.6-5.0) 02/20/18 10:34 Chloride 108.9 mmol/L (98-107) H 02/20/18 10:34 Carbon Dioxide 19 mmol/L (22-30) L 02/20/18 10:34 Anion Gap 16 mmol/L 02/20/18 10:34 BUN 10 mg/dL (7-17) 02/20/18 10:34 Creatinine 0.6 mg/dL (0.7-1.2) L 02/20/18 10:34 Estimated GFR > 60 ml/min 02/20/18 10:34 BUN/Creatinine Ratio 17 % 02/20/18 10:34 Glucose 124 mg/dL (65-100) H 02/20/18 10:34 POC Glucose 176 (70-105) H 02/21/18 18:25 Uric Acid 6.5 mg/dL (3.5-7.6) 02/19/18 10:15 Calcium 7.5 mg/dL (8.4-10.2) L 02/20/18 10:34 AST 14 units/L (5-40) 02/19/18 10:15 ALT 15 units/L (7-56) 02/19/18 10:15 Lactate Dehydrogenase 185 units/L (91-180) H 02/19/18 10:15 TSH 4.600 mlU/mL (0.270-4.200) H 02/19/18 18:18 Free T4 0.86 ng/dL (0.76-1.46) 02/20/18 10:34 Urine Color Yellow (Yellow) 02/19/18 11:15 Urine Turbidity Clear (Clear) 02/19/18 11:15 Urine pH 6.0 (5.0-7.0) 02/19/18 11:15 Ur Specific [place] 1.012 (1.003-1.030) 02/19/18 11:15 Urine Protein <15 mg/dl mg/dL (Negative) 02/19/18 11:15 Urine Glucose (UA) Neg mg/dL (Negative) 02/19/18 11:15 Urine Ketones Neg mg/dL (Negative) 02/19/18 11:15 Urine Blood Neg (Negative) 02/19/18 11:15 Urine Nitrite Neg (Negative) 02/19/18 11:15 Urine Bilirubin Neg (Negative) 02/19/18 11:15 Urine Urobilinogen < 2.0 mg/dL (<2.0) 02/19/18 11:15 Ur Leukocyte Esterase Neg (Negative) 02/19/18 11:15 Urine WBC (Auto) < 1.0 /HPF (0.0-6.0) 02/19/18 11:15 Urine RBC (Auto) 1.0 /HPF (0.0-6.0) 02/19/18 11:15 U Epithel Cells (Auto) < 1.0 /HPF (0-13.0) 02/19/18 11:15 Blood Type B POSITIVE 02/19/18 10:15 Antibody Screen Negative 02/19/18 10:15 Crossmatch See Detail 02/19/18 10:15
[2018-02-22] MEDS: HumuLIN R SUB-Q SCH ×4 (00:10→23:50)
[2018-02-22] MEDS: ZOSYN/NS 4.5GM/100ML 4.5 GM/100 ML VIAL IV SCH ×4 (02:16→21:38)
[2018-02-22] MEDS: MYLICON PO PRN ×2 (02:30→21:39)
[2018-02-22] MEDS: PERCOCET 5/325 PO PRN ×3 (03:39→23:47)
[2018-02-22 06:05] LABS: Hematocrit 27.2 % (30.3-42.9)
--- NOTE | 2018-02-22 09:04 | Progress Note ---
Assessment and Plan A/P POD#3 repeat csec and BTL tachy resolving s/p 2u prbc elevated from 7 to 9 continue on abx will follow recommendations from medicine -consider d/c abx today encourage ambulation consider d/c home tomorrow Subjective - Subjective Date of service: 02/22/18 Principal diagnosis: s/p repeat csec btl tachy Interval history: This fer 32 yo at 38+1 weeks here for scheduled repeat csearean. She is a patient of [facility] and has been seen since 11 week. 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 she alos has sickle cell trait and vit D and B12 deficiency. She had a low lying placenta that resolved and hx of UTI treated. She has been managed in this by MFM. Patient reports: appetite normal, voiding normally, pain well controlled, flatus , ambulating normally [place]: doing well Objective - Vital Signs Latest vital signs: Vital Signs Temp Pulse Resp BP BP Pulse Ox 02/22/18 04:35 98.7 F 102 H 18 136/65 02/22/18 01:02 99.0 F 108 H 20 150/90 02/22/18 00:32 99.2 F 111 H 20 141/85 02/22/18 00:02 98.5 F 114 H 20 132/84 02/21/18 23:32 99.1 F 118 H 20 122/79 98 02/21/18 23:17 99.2 F 119 H 20 123/76 02/21/18 22:24 99.2 F 119 H 20 144/85 02/21/18 22:17 99.6 F 129 H 20 131/85 02/21/18 21:47 99.4 F 115 H 22 150/97 100 02/21/18 21:17 99.4 F 106 H 20 150/74 100 02/21/18 21:16 99.4 F 106 H 20 150/74 100 02/21/18 21:02 99.0 F 112 H 20 148/72 100 02/21/18 16:15 98.2 F 115 H 20 119/62 02/21/18 09:05 97.9 F 117 H 20 158/85 Intake and Output 02/21/18 02/22/18 02/22/18 23:59 07:59 15:59 Intake Total 1030 590 Balance 1030 590 Intake: IV 100 ZOSYN/NS 4.5GM/100ML 4.5 100 gm In 100 ml @ 200 mls/hr IV Q8HR [facility] Rx#: [id number] Oral 540 Intake, Free Water 240 240 Blood Product 250 250 Leukoreduced Rbc Part 2 0 250 Unit [id number] Leukoreduced Red Blood 250 Cells Unit [id number] Other: Total, Intake Amount 300 # Voids Void 1 1 - Exam Breasts: Present: normal Cardiovascular: Present: Regular rate, Normal S1 Lungs: Present: Clear to auscultation, Normal air movement Abdomen: Present: normal appearance, soft, normal bowel sounds. Absent: distention, tenderness, guarding Vulva: both: normal Uterus: Present: normal, firm, fundal height below umbilicus. Absent: bogginess , tenderness Extremities: Present: normal Deep Tendon Reflex Grade: Normal +2 Incision: Present: normal, dry, intact - Labs Labs: Abnormal lab results 02/19/18 02/21/18 02/21/18 Range/Units 10:15 12:01 12:57 WBC (4.5-11.0) K/mm3 RBC (3.65-5.03) M/mm3 Hgb 7.0 L (10.1-14.3) gm/dl Hct 21.1 L (30.3-42.9) % Lymph % (Auto) (13.4-35.0) % [place] # (0.0-0.8) K/mm3 Seg Neutrophils % (40.0-70.0) % Seg Neutrophils # (1.8-7.7) K/mm3 POC Glucose 128 H (70-105) Crossmatch See Detail 02/21/18 02/21/18 02/21/18 Range/Units 16:55 18:25 23:53 WBC 16.5 H (4.5-11.0) K/mm3 RBC 2.50 L (3.65-5.03) M/mm3 Hgb 7.0 L (10.1-14.3) gm/dl Hct 21.3 L (30.3-42.9) % Lymph % (Auto) 10.4 L (13.4-35.0) % [place] # 1.1 H (0.0-0.8) K/mm3 Seg Neutrophils % 82.0 H (40.0-70.0) % Seg Neutrophils # 13.6 H (1.8-7.7) K/mm3 POC Glucose 176 H 155 H (70-105) Crossmatch 02/22/18 02/22/18 Range/Units 05:27 05:42 WBC (4.5-11.0) K/mm3 RBC (3.65-5.03) M/mm3 Hgb 9.0 L (10.1-14.3) gm/dl Hct 27.2 L (30.3-42.9) % Lymph % (Auto) (13.4-35.0) % [place] # (0.0-0.8) K/mm3 Seg Neutrophils % (40.0-70.0) % Seg Neutrophils # (1.8-7.7) K/mm3 POC Glucose 121 H (70-105) Crossmatch
[2018-02-22] MEDS ORDERED: DIFLUCAN PO ONE (10:00)
[2018-02-22] MEDS: CLARITIN PO SCH (10:05)
[2018-02-22] MEDS: GLUCOPHAGE PO SCH ×2 (10:10→21:38)
[2018-02-22] MEDS: FEOSOL PO SCH (10:10)
[2018-02-22] MEDS: PRENATAL VITAMIN PO SCH (10:10)
--- NOTE | 2018-02-22 15:30 | Progress Note ---
<GARYAgapitoMARGY KWON - Last Filed: 02/22/18 15:38> Assessment and Plan Assessment and plan: Assessment: Patient seen and evaluated today. Is alert and oriented times 3, no apparent distress noted. Patient is complaining of abdominal pain in which associated with gas. Patient has not had a bowel movement since surgery in which according to OB nurse, will call OBGYN for orders for Mag Citrate. Noted with positive bowel sound in all 4 quadrants, incision is intact, no s/s of infections noted with starr. Plan: Continue IV fluids, will follow along Monitor for bowel movement and reduction of Gas S/P PRBC: Monitor H/H Dvt/GI prophylaxis Discharge Home in the am if OK overnight with Amoxicilin ABT therapy x 7 days History Interval history: Patient is a 32 year old female with a history of obesity and diabetes. Our services is being consulted for evaluation of tachycardia. Patient is status post , loss of blood during surgery and was transfused packed red blood cells. Heart rate has been in the 150s. MAXIMUM TEMPERATURE during OR was 100. Patient stated that after her first section C- section she had experienced tachycardia as well. Hospitalist Physical - Constitutional Vitals: Temp Pulse Resp BP Pulse Ox 98.1 F 101 H 18 149/75 98 02/22/18 09:10 02/22/18 09:10 02/22/18 09:10 02/22/18 09:10 02/22/18 09:10 General appearance: Present: no acute distress, well-nourished - EENT Eyes: Present: PERRL ENT: hearing intact - Neck Neck: Present: supple - Respiratory Respiratory effort: normal Respiratory: bilateral: CTA - Cardiovascular Rhythm: regular Heart Sounds: Present: S1 & S2 - Extremities Extremities: no ischemia, pulses intact, pulses symmetrical Peripheral Pulses: within normal limits - Abdominal General gastrointestinal: soft, tender, normal bowel sounds - Integumentary Integumentary: Present: clear, warm, dry - Psychiatric Psychiatric: appropriate mood/affect - Neurologic Neurologic: CNII-XII intact Results - Labs CBC & Chem 7: 02/22/18 05:42 02/20/18 10:34 Labs: Laboratory Last Values WBC 16.5 K/mm3 (4.5-11.0) H 02/21/18 16:55 RBC 2.50 M/mm3 (3.65-5.03) L 02/21/18 16:55 Hgb 9.0 gm/dl (10.1-14.3) L 02/22/18 05:42 Hct 27.2 % (30.3-42.9) L 02/22/18 05:42 MCV 85 fl (79-97) 02/21/18 16:55 MCH 28 pg (28-32) 02/21/18 16:55 MCHC 33 % (30-34) 02/21/18 16:55 RDW 15.2 % (13.2-15.2) 02/21/18 16:55 Plt Count 185 K/mm3 (140-440) 02/21/18 16:55 Lymph % (Auto) 10.4 % (13.4-35.0) L 02/21/18 16:55 Isabella % (Auto) 6.8 % (0.0-7.3) 02/21/18 16:55 Eos % (Auto) 0.6 % (0.0-4.3) 02/21/18 16:55 Baso % (Auto) 0.2 % (0.0-1.8) 02/21/18 16:55 Lymph # 1.7 K/mm3 (1.2-5.4) 02/21/18 16:55 Isabella # 1.1 K/mm3 (0.0-0.8) H 02/21/18 16:55 Eos # 0.1 K/mm3 (0.0-0.4) 02/21/18 16:55 Baso # 0.0 K/mm3 (0.0-0.1) 02/21/18 16:55 Add Manual Diff Complete 02/19/18 22:51 Total Counted 200 02/19/18 22:51 Seg Neutrophils % 82.0 % (40.0-70.0) H 02/21/18 16:55 Seg Neuts % (Manual) 90.0 % (40.0-70.0) H 02/19/18 22:51 Band Neutrophils % 1.5 % 02/19/18 22:51 Lymphocytes % (Manual) 5.0 % (13.4-35.0) L 02/19/18 22:51 Reactive Lymphs % (Man) 0 % 02/19/18 22:51 Monocytes % (Manual) 3.5 % (0.0-7.3) 02/19/18 22:51 Eosinophils % (Manual) 0 % (0.0-4.3) 02/19/18 22:51 Basophils % (Manual) 0 % (0.0-1.8) 02/19/18 22:51 Metamyelocytes % 0 % 02/19/18 22:51 Myelocytes % 0 % 02/19/18 22:51 Promyelocytes % 0 % 02/19/18 22:51 Blast Cells % 0 % 02/19/18 22:51 Nucleated RBC % Not Reportable 02/19/18 22:51 Seg Neutrophils # 13.6 K/mm3 (1.8-7.7) H 02/21/18 16:55 Seg Neutrophils # Man 21.7 K/mm3 (1.8-7.7) H 02/19/18 22:51 Band Neutrophils # 0.4 K/mm3 02/19/18 22:51 Lymphocytes # (Manual) 1.2 K/mm3 (1.2-5.4) 02/19/18 22:51 Abs React Lymphs (Man) 0.0 K/mm3 02/19/18 22:51 Monocytes # (Manual) 0.8 K/mm3 (0.0-0.8) 02/19/18 22:51 Eosinophils # (Manual) 0.0 K/mm3 (0.0-0.4) 02/19/18 22:51 Basophils # (Manual) 0.0 K/mm3 (0.0-0.1) 02/19/18 22:51 Metamyelocytes # 0.0 K/mm3 02/19/18 22:51 Myelocytes # 0.0 K/mm3 02/19/18 22:51 Promyelocytes # 0.0 K/mm3 02/19/18 22:51 Blast Cells # 0.0 K/mm3 02/19/18 22:51 WBC Morphology Not Reportable 02/19/18 22:51 Hypersegmented Neuts Not Reportable 02/19/18 22:51 Hyposegmented Neuts Not Reportable 02/19/18 22:51 Hypogranular Neuts Not Reportable 02/19/18 22:51 Smudge Cells Not Reportable 02/19/18 22:51 Toxic Granulation Not Reportable 04/11/18 22:51 Toxic Vacuolation Not Reportable 02/19/18 22:51 Dohle Bodies Not Reportable 02/19/18 22:51 Pelger-Huet Anomaly Not Reportable 02/19/18 22:51 [place] Rods Not Reportable 02/19/18 22:51 Platelet Estimate Appears normal 02/19/18 22:51 Clumped Platelets Not Reportable 02/19/18 22:51 Plt Clumps, EDTA Not Reportable 02/19/18 22:51 Large Platelets Not Reportable 02/19/18 22:51 Giant Platelets Not Reportable 02/19/18 22:51 Platelet Satelliting Not Reportable 02/19/18 22:51 Plt Morphology Comment Not Reportable 02/19/18 22:51 RBC Morphology Not Reportable 02/19/18 22:51 Dimorphic RBCs Not Reportable 02/19/18 22:51 Polychromasia Not Reportable 02/19/18 22:51 Hypochromasia 1+ 02/19/18 22:51 Poikilocytosis Not Reportable 02/19/18 22:51 Anisocytosis 1+ 02/19/18 22:51 Microcytosis Not Reportable 02/19/18 22:51 Macrocytosis Not Reportable 02/19/18 22:51 Spherocytes Not Reportable 02/19/18 22:51 Pappenheimer Bodies Not Reportable 02/19/18 22:51 Sickle Cells Not Reportable 02/19/18 22:51 Target Cells Not Reportable 02/19/18 22:51 Tear Drop Cells Not Reportable 02/19/18 22:51 Ovalocytes Few 02/19/18 22:51 Helmet Cells Not Reportable 02/19/18 22:51 [place] Bodies Not Reportable 02/19/18 22:51 [place] Rings Not Reportable 02/19/18 22:51 Teo Cells Few 02/19/18 22:51 Bite Cells Not Reportable 02/19/18 22:51 Crenated Cell Not Reportable 02/19/18 22:51 Elliptocytes Few 02/19/18 22:51 Acanthocytes (Spur) Not Reportable 02/19/18 22:51 Rouleaux Not Reportable 02/19/18 22:51 Hemoglobin C Crystals Not Reportable 02/19/18 22:51 Schistocytes Not Reportable 02/19/18 22:51 Malaria parasites Not Reportable 02/19/18 22:51 Srini Bodies Not Reportable 02/19/18 22:51 Hem Pathologist Commnt No 02/19/18 22:51 PT 13.5 Sec. (12.2-14.9) 02/19/18 16:14 INR 0.98 (0.87-1.13) 02/19/18 16:14 APTT 26.3 Sec. (24.2-36.6) 02/19/18 16:14 Sodium 139 mmol/L (137-145) 02/20/18 10:34 Potassium 4.4 mmol/L (3.6-5.0) 02/20/18 10:34 Chloride 108.9 mmol/L (98-107) H 02/20/18 10:34 Carbon Dioxide 19 mmol/L (22-30) L 02/20/18 10:34 Anion Gap 16 mmol/L 02/20/18 10:34 BUN 10 mg/dL (7-17) 02/20/18 10:34 Creatinine 0.6 mg/dL (0.7-1.2) L 02/20/18 10:34 Estimated GFR > 60 ml/min 02/20/18 10:34 BUN/Creatinine Ratio 17 % 02/20/18 10:34 Glucose 124 mg/dL (65-100) H 02/20/18 10:34 POC Glucose 118 (70-105) H 02/22/18 12:49 Uric Acid 6.5 mg/dL (3.5-7.6) 02/19/18 10:15 Calcium 7.5 mg/dL (8.4-10.2) L 02/20/18 10:34 AST 14 units/L (5-40) 02/19/18 10:15 ALT 15 units/L (7-56) 02/19/18 10:15 Lactate Dehydrogenase 185 units/L (91-180) H 02/19/18 10:15 TSH 4.600 mlU/mL (0.270-4.200) H 02/19/18 18:18 Free T4 0.86 ng/dL (0.76-1.46) 02/20/18 10:34 Urine Color Yellow (Yellow) 02/19/18 11:15 Urine Turbidity Clear (Clear) 02/19/18 11:15 Urine pH 6.0 (5.0-7.0) 02/19/18 11:15 Ur Specific [place] 1.012 (1.003-1.030) 02/19/18 11:15 Urine Protein <15 mg/dl mg/dL (Negative) 02/19/18 11:15 Urine Glucose (UA) Neg mg/dL (Negative) 02/19/18 11:15 Urine Ketones Neg mg/dL (Negative) 02/19/18 11:15 Urine Blood Neg (Negative) 02/19/18 11:15 Urine Nitrite Neg (Negative) 02/19/18 11:15 Urine Bilirubin Neg (Negative) 02/19/18 11:15 Urine Urobilinogen < 2.0 mg/dL (<2.0) 02/19/18 11:15 Ur Leukocyte Esterase Neg (Negative) 02/19/18 11:15 Urine WBC (Auto) < 1.0 /HPF (0.0-6.0) 02/19/18 11:15 Urine RBC (Auto) 1.0 /HPF (0.0-6.0) 02/19/18 11:15 U Epithel Cells (Auto) < 1.0 /HPF (0-13.0) 02/19/18 11:15 Blood Type B POSITIVE 02/19/18 10:15 Antibody Screen Negative 02/19/18 10:15 Crossmatch See Detail 02/19/18 10:15 <SHAKILA LYNCH - Last Filed: 02/23/18 07:55> Assessment and Plan Assessment and plan: I saw and evaluated the patient. I agree with the findings and the plan of care as documented in the Nurse Practitioner's~note, with the following corrections and additions. 32 woman with a history of obesity, diabetes is being consulted for evaluation of tachycardia. Patient is status post , loss of blood during surgery and was transfused packed red blood cells. Heart rate has been in the 150s. she complained that she feels hot, has a cold rag on her forehead. MAXIMUM TEMPERATURE during OR was 100. Patient stated that after her first section C- section she was tachycardic Sepsis Tachycardia Acute blood loss Anemia s/p POD 2 Metabolic acidosis-Improve Medically stable for discharge from my standpoint when okay with HOUSEKEEPING [employer]OCI[employer]. Hospitalist Physical - Constitutional Vitals: Temp Pulse Resp BP Pulse Ox 99.2 F 97 H 18 133/86 98 02/23/18 00:19 02/23/18 05:59 02/23/18 00:19 02/23/18 05:59 02/22/18 16:30 Results - Labs CBC & Chem 7: 02/23/18 05:57 02/20/18 10:34 Labs: Laboratory Last Values WBC 13.2 K/mm3 (4.5-11.0) H 02/23/18 05:57 RBC 3.07 M/mm3 (3.65-5.03) L 02/23/18 05:57 Hgb 8.7 gm/dl (10.1-14.3) L 02/23/18 05:57 Hct 25.8 % (30.3-42.9) L 02/23/18 05:57 MCV 84 fl (79-97) 02/23/18 05:57 MCH 28 pg (28-32) 02/23/18 05:57 MCHC 34 % (30-34) 02/23/18 05:57 RDW 15.8 % (13.2-15.2) H 02/23/18 05:57 Plt Count 226 K/mm3 (140-440) 02/23/18 05:57 Lymph % (Auto) 10.4 % (13.4-35.0) L 02/21/18 16:55 Isabella % (Auto) 6.8 % (0.0-7.3) 02/21/18 16:55 Eos % (Auto) 0.6 % (0.0-4.3) 02/21/18 16:55 Baso % (Auto) 0.2 % (0.0-1.8) 02/21/18 16:55 Lymph # 1.7 K/mm3 (1.2-5.4) 02/21/18 16:55 Isabella # 1.1 K/mm3 (0.0-0.8) H 02/21/18 16:55 Eos # 0.1 K/mm3 (0.0-0.4) 02/21/18 16:55 Baso # 0.0 K/mm3 (0.0-0.1) 02/21/18 16:55 Add Manual Diff Complete 02/19/18 22:51 Total Counted 200 02/19/18 22:51 Seg Neutrophils % 82.0 % (40.0-70.0) H 02/21/18 16:55 Seg Neuts % (Manual) 90.0 % (40.0-70.0) H 02/19/18 22:51 Band Neutrophils % 1.5 % 02/19/18 22:51 Lymphocytes % (Manual) 5.0 % (13.4-35.0) L 02/19/18 22:51 Reactive Lymphs % (Man) 0 % 02/19/18 22:51 Monocytes % (Manual) 3.5 % (0.0-7.3) 02/19/18 22:51 Eosinophils % (Manual) 0 % (0.0-4.3) 02/19/18 22:51 Basophils % (Manual) 0 % (0.0-1.8) 02/19/18 22:51 Metamyelocytes % 0 % 02/19/18 22:51 Myelocytes % 0 % 02/19/18 22:51 Promyelocytes % 0 % 02/19/18 22:51 Blast Cells % 0 % 02/19/18 22:51 Nucleated RBC % Not Reportable 02/19/18 22:51 Seg Neutrophils # 13.6 K/mm3 (1.8-7.7) H 02/21/18 16:55 Seg Neutrophils # Man 21.7 K/mm3 (1.8-7.7) H 02/19/18 22:51 Band Neutrophils # 0.4 K/mm3 02/19/18 22:51 Lymphocytes # (Manual) 1.2 K/mm3 (1.2-5.4) 02/19/18 22:51 Abs React Lymphs (Man) 0.0 K/mm3 02/19/18 22:51 Monocytes # (Manual) 0.8 K/mm3 (0.0-0.8) 02/19/18 22:51 Eosinophils # (Manual) 0.0 K/mm3 (0.0-0.4) 02/19/18 22:51 Basophils # (Manual) 0.0 K/mm3 (0.0-0.1) 02/19/18 22:51 Metamyelocytes # 0.0 K/mm3 02/19/18 22:51 Myelocytes # 0.0 K/mm3 02/19/18 22:51 Promyelocytes # 0.0 K/mm3 02/19/18 22:51 Blast Cells # 0.0 K/mm3 02/19/18 22:51 WBC Morphology Not Reportable 02/19/18 22:51 Hypersegmented Neuts Not Reportable 02/19/18 22:51 Hyposegmented Neuts Not Reportable 02/19/18 22:51 Hypogranular Neuts Not Reportable 02/19/18 22:51 Smudge Cells Not Reportable 02/19/18 22:51 Toxic Granulation Not Reportable 02/19/18 22:51 Toxic Vacuolation Not Reportable 02/19/18 22:51 Dohle Bodies Not Reportable 02/19/18 22:51 Pelger-Huet Anomaly Not Reportable 02/19/18 22:51 Gilmer Rods Not Reportable 02/19/18 22:51 Platelet Estimate Appears normal 02/19/18 22:51 Clumped Platelets Not Reportable 02/19/18 22:51 Plt Clumps, EDTA Not Reportable 02/19/18 22:51 Large Platelets Not Reportable 02/19/18 22:51 Giant Platelets Not Reportable 02/19/18 22:51 Platelet Satelliting Not Reportable 02/19/18 22:51 Plt Morphology Comment Not Reportable 02/19/18 22:51 RBC Morphology Not Reportable 02/19/18 22:51 Dimorphic RBCs Not Reportable 02/19/18 22:51 Polychromasia Not Reportable 02/19/18 22:51 Hypochromasia 1+ 02/19/18 22:51 Poikilocytosis Not Reportable 02/19/18 22:51 Anisocytosis 1+ 02/19/18 22:51 Microcytosis Not Reportable 02/19/18 22:51 Macrocytosis Not Reportable 02/19/18 22:51 Spherocytes Not Reportable 02/19/18 22:51 Pappenheimer Bodies Not Reportable 02/19/18 22:51 Sickle Cells Not Reportable 02/19/18 22:51 Target Cells Not Reportable 02/19/18 22:51 Tear Drop Cells Not Reportable 02/19/18 22:51 Ovalocytes Few 02/19/18 22:51 Helmet Cells Not Reportable 02/19/18 22:51 [place] Bodies Not Reportable 02/19/18 22:51 [place] Rings Not Reportable 02/19/18 22:51 Teo Cells Few 02/19/18 22:51 Bite Cells Not Reportable 02/19/18 22:51 Crenated Cell Not Reportable 02/19/18 22:51 Elliptocytes Few 02/19/18 22:51 Acanthocytes (Spur) Not Reportable 02/19/18 22:51 Rouleaux Not Reportable 02/19/18 22:51 Hemoglobin C Crystals Not Reportable 02/19/18 22:51 Schistocytes Not Reportable 02/19/18 22:51 Malaria parasites Not Reportable 02/19/18 22:51 Srini Bodies Not Reportable 02/19/18 22:51 Hem Pathologist Commnt No 02/19/18 22:51 PT 13.5 Sec. (12.2-14.9) 02/19/18 16:14 INR 0.98 (0.87-1.13) 02/19/18 16:14 APTT 26.3 Sec. (24.2-36.6) 02/19/18 16:14 Sodium 139 mmol/L (137-145) 02/20/18 10:34 Potassium 4.4 mmol/L (3.6-5.0) 02/20/18 10:34 Chloride 108.9 mmol/L (98-107) H 02/20/18 10:34 Carbon Dioxide 19 mmol/L (22-30) L 02/20/18 10:34 Anion Gap 16 mmol/L 02/20/18 10:34 BUN 10 mg/dL (7-17) 02/20/18 10:34 Creatinine 0.6 mg/dL (0.7-1.2) L 02/20/18 10:34 Estimated GFR > 60 ml/min 02/20/18 10:34 BUN/Creatinine Ratio 17 % 02/20/18 10:34 Glucose 124 mg/dL (65-100) H 02/20/18 10:34 POC Glucose 134 (70-105) H 02/23/18 06:35 Uric Acid 6.5 mg/dL (3.5-7.6) 02/19/18 10:15 Calcium 7.5 mg/dL (8.4-10.2) L 02/20/18 10:34 AST 14 units/L (5-40) 02/19/18 10:15 ALT 15 units/L (7-56) 02/19/18 10:15 Lactate Dehydrogenase 185 units/L (91-180) H 02/19/18 10:15 TSH 4.600 mlU/mL (0.270-4.200) H 02/19/18 18:18 Free T4 0.86 ng/dL (0.76-1.46) 02/20/18 10:34 Urine Color Yellow (Yellow) 02/19/18 11:15 Urine Turbidity Clear (Clear) 02/19/18 11:15 Urine pH 6.0 (5.0-7.0) 02/19/18 11:15 Ur Specific [place] 1.012 (1.003-1.030) 02/19/18 11:15 Urine Protein <15 mg/dl mg/dL (Negative) 02/19/18 11:15 Urine Glucose (UA) Neg mg/dL (Negative) 02/19/18 11:15 Urine Ketones Neg mg/dL (Negative) 02/19/18 11:15 Urine Blood Neg (Negative) 02/19/18 11:15 Urine Nitrite Neg (Negative) 02/19/18 11:15 Urine Bilirubin Neg (Negative) 02/19/18 11:15 Urine Urobilinogen < 2.0 mg/dL (<2.0) 02/19/18 11:15 Ur Leukocyte Esterase Neg (Negative) 02/19/18 11:15 Urine WBC (Auto) < 1.0 /HPF (0.0-6.0) 02/19/18 11:15 Urine RBC (Auto) 1.0 /HPF (0.0-6.0) 02/19/18 11:15 U Epithel Cells (Auto) < 1.0 /HPF (0-13.0) 02/19/18 11:15 Blood Type B POSITIVE 02/19/18 10:15 Antibody Screen Negative 02/19/18 10:15 Crossmatch See Detail 02/19/18 10:15
[2018-02-22] MEDS: TRIMOX PO SCH (21:38)
[2018-02-23] MEDS: MYLICON PO PRN (05:55)
[2018-02-23] MEDS: PERCOCET 5/325 PO PRN (05:55)
[2018-02-23 06:09] LABS: Hematocrit 25.8 % (30.3-42.9); Hemoglobin 8.7 gm/dl (10.1-14.3); Mean Corpuscular HGB Conc 34 % (30-34); Mean Corpuscular Hemoglobin 28 pg (28-32); Mean Corpuscular Volume 84 fl (79-97); Platelet Count 226 K/mm3 (140-440); Red Blood Count 3.07 M/mm3 (3.65-5.03); Red Cell Distribution Width 15.8 % (13.2-15.2)
[2018-02-23] MEDS: ZOSYN/NS 4.5GM/100ML 4.5 GM/100 ML VIAL IV SCH ×2 (06:28→07:00)
[2018-02-23] MEDS ORDERED: CITRATE OF MAGNESIA PO NR (07:45)
[2018-02-23] MEDS: GLUCOPHAGE PO SCH (08:41)
--- NOTE | 2018-02-23 08:52 | Progress Note ---
Assessment and Plan A/P POD#4 repeat csec and BTL, resolved tachy vss doing well Bm last night recommendations from hospitalist to give amox for one week f/u next Saturday for staple removal. Subjective - Subjective Date of service: 02/23/18 Principal diagnosis: s/p repeat csec btl tachy Interval history: This fer 32 yo at 38+1 weeks here for scheduled repeat csearean. She is a patient of [facility] and has been seen since 11 week. 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 she alos has sickle cell trait and vit D and B12 deficiency. She had a low lying placenta that resolved and hx of UTI treated. She has been managed in this by MFM. Patient reports: appetite normal, voiding normally, pain well controlled, flatus , bowel movement, ambulating normally : doing well Objective - Vital Signs Latest vital signs: Vital Signs Temp Pulse Resp BP BP Pulse Ox 02/23/18 05:59 97 H 133/86 02/23/18 00:19 99.2 F 104 H 18 143/76 02/22/18 16:30 98.6 F 113 H 18 139/77 98 02/22/18 09:10 98.1 F 101 H 18 149/75 98 Intake and Output 02/22/18 02/23/18 02/23/18 23:59 07:59 15:59 Intake Total 240 120 Balance 240 120 Intake: Intake, Free Water 240 120 Other: # Voids Void 1 # Bowel Movements 1 - Exam Breasts: Present: normal Cardiovascular: Present: Regular rate, Normal S1 Lungs: Present: Clear to auscultation, Normal air movement Abdomen: Present: normal appearance, soft, normal bowel sounds. Absent: distention, tenderness, guarding Vulva: both: normal Uterus: Present: normal, firm, fundal height below umbilicus. Absent: bogginess , tenderness Extremities: Present: normal. Absent: tenderness Deep Tendon Reflex Grade: Normal +2 Incision: Present: normal, dry, intact. Absent: erythematous - Labs Labs: Abnormal lab results 02/22/18 02/22/18 02/23/18 Range/Units 12:49 23:50 05:57 WBC 13.2 H (4.5-11.0) K/mm3 RBC 3.07 L (3.65-5.03) M/mm3 Hgb 8.7 L (10.1-14.3) gm/dl Hct 25.8 L (30.3-42.9) % RDW 15.8 H (13.2-15.2) % POC Glucose 118 H 132 H (70-105) 02/23/18 Range/Units 06:35 WBC (4.5-11.0) K/mm3 RBC (3.65-5.03) M/mm3 Hgb (10.1-14.3) gm/dl Hct (30.3-42.9) % RDW (13.2-15.2) % POC Glucose 134 H (70-105)
--- NOTE | 2018-02-23 08:57 | Discharge Summary ---
Providers - Providers Date of Admission: 02/19/18 09:17 Date of discharge: 02/23/18 Attending physician: SHAKILA LYNCH MD Primary care physician: KERWIN SAAVEDRA MD Hospitalization Reason for admission: IUP at term Delivery: Procedure: section Episiotomy: none Laceration: none Incision: normal, dry, skin Other procedures: tubal ligation complications: pelvic infection, transfusion Discharge diagnosis: IUP at term delivered [place] baby: male Condition at discharge: Good Disposition: DC-01 TO HOME OR SELFCARE Plan - Discharge Medications Prescriptions: Amoxicillin 500 mg PO BID #14 capsule Docusate Sodium [Colace] 100 mg PO BID PRN #60 capsule PRN Reason: Constipation Ferrous Sulfate 325 mg PO BID #30 tablet. Ibuprofen [Motrin] 600 mg PO Q8H PRN #30 tablet PRN Reason: Pain Metformin HCl [Glucophage] 1,000 mg PO BID #60 tablet oxyCODONE /ACETAMINOPHEN [Percocet 5/325] 1 tab PO Q6HR PRN #30 tablet PRN Reason: Pain - Provider Discharge Summary Activity: routine, no sex for 6 weeks, no strenuous exercise Diet: routine Instructions: routine Additional instructions: [] Smoking cessation referral if applicable(refer to patient education folder for contact #) [] Refer to [facility] Booklet Call your doctor immediately for: * Fever > 100.5 * Heavy vaginal bleeding ( >1 pad per hour) * Severe persistent headache * Shortness of breath * Reddened, hot, painful area to leg or breast * Drainage or odor from incision. * Keep incision clean and dry at all times and follow doctor's instructions regarding bathing/showering - Follow up plan Follow up: KERWIN SAAVEDRA MD [Primary Care Provider] - 03/03/18
[2018-02-23 09:56] VITALS: BP 124/67
[2018-02-23] MEDS: TRIMOX PO SCH (10:24)
[2018-02-23] MEDS: PRENATAL VITAMIN PO SCH (10:24)
[2018-02-23] MEDS: CLARITIN PO SCH (10:24)
[2018-02-23] MEDS: FEOSOL PO SCH (10:24)
--- NOTE | 2018-02-23 12:31 | Progress Note ---
Assessment and Plan Assessment and plan: 32 woman with a history of obesity, diabetes is being consulted for evaluation of tachycardia. Patient is status post , loss of blood during surgery and was transfused packed red blood cells. Heart rate has been in the 150s. she complained that she feels hot, has a cold rag on her forehead. MAXIMUM TEMPERATURE during OR was 100. Patient stated that after her first section C- section she was tachycardic Sepsis-Discharge Home with Amoxicilin ABT therapy x 7 days Tachycardia-RESOLVED LIKELY DUE TO BLOOD LOSS AND SEPSIS Acute blood loss Anemia-IMPROVED S/P 4 UNITS PRBC s/p POD 4 Metabolic acidosis-Improve Medically stable for discharge from my standpoint when okay with [employer]. History Interval history: Patient seen and examined in no acute distress. Hospitalist Physical - Constitutional Vitals: Temp Pulse Resp BP Pulse Ox 98.3 F 92 H 18 124/67 95 02/23/18 09:37 02/23/18 09:37 02/23/18 09:37 02/23/18 09:37 02/23/18 09:37 General appearance: Present: no acute distress, well-nourished - EENT Eyes: Present: PERRL ENT: hearing intact, clear oral mucosa, dentition normal - Neck Neck: Present: supple, normal ROM - Respiratory Respiratory effort: normal Respiratory: bilateral: CTA - Cardiovascular Rhythm: regular Heart Sounds: Present: S1 & S2 - Extremities Extremities: no ischemia, pulses intact, pulses symmetrical, No edema, normal temperature, normal color, Full ROM Peripheral Pulses: within normal limits - Abdominal General gastrointestinal: soft, non-tender, non-distended - Integumentary Integumentary: Present: clear, warm, dry - Psychiatric Psychiatric: appropriate mood/affect, intact judgment & insight - Neurologic Neurologic: CNII-XII intact, moves all extremities - Allied Health Allied health notes reviewed: nursing Results - Labs CBC & Chem 7: 02/23/18 05:57 02/20/18 10:34 Labs: Laboratory Last Values WBC 13.2 K/mm3 (4.5-11.0) H 02/23/18 05:57 RBC 3.07 M/mm3 (3.65-5.03) L 02/23/18 05:57 Hgb 8.7 gm/dl (10.1-14.3) L 02/23/18 05:57 Hct 25.8 % (30.3-42.9) L 02/23/18 05:57 MCV 84 fl (79-97) 02/23/18 05:57 MCH 28 pg (28-32) 02/23/18 05:57 MCHC 34 % (30-34) 02/23/18 05:57 RDW 15.8 % (13.2-15.2) H 02/23/18 05:57 Plt Count 226 K/mm3 (140-440) 02/23/18 05:57 Lymph % (Auto) 10.4 % (13.4-35.0) L 02/21/18 16:55 [place] % (Auto) 6.8 % (0.0-7.3) 02/21/18 16:55 Eos % (Auto) 0.6 % (0.0-4.3) 02/21/18 16:55 Baso % (Auto) 0.2 % (0.0-1.8) 02/21/18 16:55 Lymph # 1.7 K/mm3 (1.2-5.4) 02/21/18 16:55 [place]anan # 1.1 K/mm3 (0.0-0.8) H 02/21/18 16:55 Eos # 0.1 K/mm3 (0.0-0.4) 02/21/18 16:55 Baso # 0.0 K/mm3 (0.0-0.1) 02/21/18 16:55 Add Manual Diff Complete 02/19/18 22:51 Total Counted 200 02/19/18 22:51 Seg Neutrophils % 82.0 % (40.0-70.0) H 02/21/18 16:55 Seg Neuts % (Manual) 90.0 % (40.0-70.0) H 02/19/18 22:51 Band Neutrophils % 1.5 % 02/19/18 22:51 Lymphocytes % (Manual) 5.0 % (13.4-35.0) L 02/19/18 22:51 Reactive Lymphs % (Man) 0 % 02/19/18 22:51 Monocytes % (Manual) 3.5 % (0.0-7.3) 02/19/18 22:51 Eosinophils % (Manual) 0 % (0.0-4.3) 02/19/18 22:51 Basophils % (Manual) 0 % (0.0-1.8) 02/19/18 22:51 Metamyelocytes % 0 % 02/19/18 22:51 Myelocytes % 0 % 02/19/18 22:51 Promyelocytes % 0 % 02/19/18 22:51 Blast Cells % 0 % 02/19/18 22:51 Nucleated RBC % Not Reportable 02/19/18 22:51 Seg Neutrophils # 13.6 K/mm3 (1.8-7.7) H 02/21/18 16:55 Seg Neutrophils # Man 21.7 K/mm3 (1.8-7.7) H 02/19/18 22:51 Band Neutrophils # 0.4 K/mm3 02/19/18 22:51 Lymphocytes # (Manual) 1.2 K/mm3 (1.2-5.4) 02/19/18 22:51 Abs React Lymphs (Man) 0.0 K/mm3 02/19/18 22:51 Monocytes # (Manual) 0.8 K/mm3 (0.0-0.8) 02/19/18 22:51 Eosinophils # (Manual) 0.0 K/mm3 (0.0-0.4) 02/19/18 22:51 Basophils # (Manual) 0.0 K/mm3 (0.0-0.1) 02/19/18 22:51 Metamyelocytes # 0.0 K/mm3 02/19/18 22:51 Myelocytes # 0.0 K/mm3 02/19/18 22:51 Promyelocytes # 0.0 K/mm3 02/19/18 22:51 Blast Cells # 0.0 K/mm3 02/19/18 22:51 WBC Morphology Not Reportable 02/19/18 22:51 Hypersegmented Neuts Not Reportable 02/19/18 22:51 Hyposegmented Neuts Not Reportable 02/19/18 22:51 Hypogranular Neuts Not Reportable 02/19/18 22:51 Smudge Cells Not Reportable 02/19/18 22:51 Toxic Granulation Not Reportable 02/19/18 22:51 Toxic Vacuolation Not Reportable 02/19/18 22:51 Dohle Bodies Not Reportable 02/19/18 22:51 Pelger-Huet Anomaly Not Reportable 02/19/18 22:51 Gilmer Rods Not Reportable 02/19/18 22:51 Platelet Estimate Appears normal 02/19/18 22:51 Clumped Platelets Not Reportable 02/19/18 22:51 Plt Clumps, EDTA Not Reportable 02/19/18 22:51 Large Platelets Not Reportable 02/19/18 22:51 Giant Platelets Not Reportable 02/19/18 22:51 Platelet Satelliting Not Reportable 02/19/18 22:51 Plt Morphology Comment Not Reportable 02/19/18 22:51 RBC Morphology Not Reportable 02/19/18 22:51 Dimorphic RBCs Not Reportable 02/19/18 22:51 Polychromasia Not Reportable 02/19/18 22:51 Hypochromasia 1+ 02/19/18 22:51 Poikilocytosis Not Reportable 02/19/18 22:51 Anisocytosis 1+ 02/19/18 22:51 Microcytosis Not Reportable 02/19/18 22:51 Macrocytosis Not Reportable 02/19/18 22:51 Spherocytes Not Reportable 02/19/18 22:51 Pappenheimer Bodies Not Reportable 02/19/18 22:51 Sickle Cells Not Reportable 02/19/18 22:51 Target Cells Not Reportable 02/19/18 22:51 Tear Drop Cells Not Reportable 02/19/18 22:51 Ovalocytes Few 02/19/18 22:51 Helmet Cells Not Reportable 02/19/18 22:51 [place] Bodies Not Reportable 02/19/18 22:51 Max Rings Not Reportable 02/19/18 22:51 Teo Cells Few 02/19/18 22:51 Bite Cells Not Reportable 02/19/18 22:51 Crenated Cell Not Reportable 02/19/18 22:51 Elliptocytes Few 02/19/18 22:51 Acanthocytes (Spur) Not Reportable 02/19/18 22:51 Rouleaux Not Reportable 02/19/18 22:51 Hemoglobin C Crystals Not Reportable 02/19/18 22:51 Schistocytes Not Reportable 02/19/18 22:51 Malaria parasites Not Reportable 02/19/18 22:51 Srini Bodies Not Reportable 02/19/18 22:51 Hem Pathologist Commnt No 02/19/18 22:51 PT 13.5 Sec. (12.2-14.9) 02/19/18 16:14 INR 0.98 (0.87-1.13) 02/19/18 16:14 APTT 26.3 Sec. (24.2-36.6) 02/19/18 16:14 Sodium 139 mmol/L (137-145) 02/20/18 10:34 Potassium 4.4 mmol/L (3.6-5.0) 02/20/18 10:34 Chloride 108.9 mmol/L (98-107) H 02/20/18 10:34 Carbon Dioxide 19 mmol/L (22-30) L 02/20/18 10:34 Anion Gap 16 mmol/L 02/20/18 10:34 BUN 10 mg/dL (7-17) 02/20/18 10:34 Creatinine 0.6 mg/dL (0.7-1.2) L 02/20/18 10:34 Estimated GFR > 60 ml/min 02/20/18 10:34 BUN/Creatinine Ratio 17 % 02/20/18 10:34 Glucose 124 mg/dL (65-100) H 02/20/18 10:34 POC Glucose 134 (70-105) H 02/23/18 06:35 Uric Acid 6.5 mg/dL (3.5-7.6) 02/19/18 10:15 Calcium 7.5 mg/dL (8.4-10.2) L 02/20/18 10:34 AST 14 units/L (5-40) 02/19/18 10:15 ALT 15 units/L (7-56) 02/19/18 10:15 Lactate Dehydrogenase 185 units/L (91-180) H 02/19/18 10:15 TSH 4.600 mlU/mL (0.270-4.200) H 02/19/18 18:18 Free T4 0.86 ng/dL (0.76-1.46) 02/20/18 10:34 Urine Color Yellow (Yellow) 02/19/18 11:15 Urine Turbidity Clear (Clear) 02/19/18 11:15 Urine pH 6.0 (5.0-7.0) 02/19/18 11:15 Ur Specific [place] 1.012 (1.003-1.030) 02/19/18 11:15 Urine Protein <15 mg/dl mg/dL (Negative) 02/19/18 11:15 Urine Glucose (UA) Neg mg/dL (Negative) 02/19/18 11:15 Urine Ketones Neg mg/dL (Negative) 02/19/18 11:15 Urine Blood Neg (Negative) 02/19/18 11:15 Urine Nitrite Neg (Negative) 02/19/18 11:15 Urine Bilirubin Neg (Negative) 02/19/18 11:15 Urine Urobilinogen < 2.0 mg/dL (<2.0) 02/19/18 11:15 Ur Leukocyte Esterase Neg (Negative) 02/19/18 11:15 Urine WBC (Auto) < 1.0 /HPF (0.0-6.0) 02/19/18 11:15 Urine RBC (Auto) 1.0 /HPF (0.0-6.0) 02/19/18 11:15 U Epithel Cells (Auto) < 1.0 /HPF (0-13.0) 02/19/18 11:15 Blood Type B POSITIVE 02/19/18 10:15 Antibody Screen Negative 02/19/18 10:15 Crossmatch See Detail 02/19/18 10:15
== END 2018-02-23 13:45 | disposition home or self-care (01) | DRG 765 ==
LOC: APU 09:17 → LD 11:25 → EDSTATUS 11:30 → LD 17:33 → OB 02-20 08:13
PROVIDERS: ADMIT Obstetrics & Gynecology; ATTEND Internal Medicine
PROC: 10D00Z1 Extraction of Products of Conception, Low, Open Approach (ICD-10-PCS; principal; 2018-02-19)
PROC: 0UT70ZZ Resection of Bilateral Fallopian Tubes, Open Approach (ICD-10-PCS; 2018-02-19)
PROC: 30233N1 Transfusion of Nonautologous Red Blood Cells into Peripheral Vein, Percutaneous Approach (ICD-10-PCS; 2018-02-19)
PROC: 3E0234Z Introduction of Serum, Toxoid and Vaccine into Muscle, Percutaneous Approach (ICD-10-PCS; 2018-02-20)
DX: O34.211 Maternal care for low transverse scar from previous cesarean delivery (principal); O24.12 Pre-existing type 2 diabetes mellitus, in childbirth; O85 Puerperal sepsis; O16.4 Unspecified maternal hypertension, complicating childbirth; E66.01 Morbid (severe) obesity due to excess calories; O72.1 Other immediate postpartum hemorrhage; D57.3 Sickle-cell trait; Z79.4 Long term (current) use of insulin; O99.214 Obesity complicating childbirth; E11.65 Type 2 diabetes mellitus with hyperglycemia; D62 Acute posthemorrhagic anemia; O99.02 Anemia complicating childbirth; O75.89 Other specified complications of labor and delivery; E55.9 Vitamin D deficiency, unspecified; E53.8 Deficiency of other specified B group vitamins; E87.2 Acidosis; Z3A.38 38 weeks gestation of pregnancy; Z37.0 Single live birth; Z23 Encounter for immunization; Z90.49 Acquired absence of other specified parts of digestive tract; Z30.2 Encounter for sterilization; Z83.3 Family history of diabetes mellitus; Z82.49 Family history of ischemic heart disease and other diseases of the circulatory system; Z80.8 Family history of malignant neoplasm of other organs or systems; Z88.6 Allergy status to analgesic agent; Z88.8 Allergy status to other drugs, medicaments and biological substances; Z87.440 Personal history of urinary (tract) infections; O44.43 Low lying placenta NOS or without hemorrhage, third trimester
CPT/HCPCS: 36415; 71045; 80048; 81001; 82565; 82947; 82962; 83615; 84439; 84443; 84450; 84460; 84550; 85007; 85014; 85018; 85025; 85027; 85610; 85730; 86850; 86900; 86901; 86920; 88302; 88307; 93005; 93010; 99211; C1765; G0463; J0690; J1170; J1200; J1815; J1885; J2175; J2274; J2370; J2405; J2543; J2590; J2765; J3370; J7030; J7040; J7050; J7120; P9016